=== PATIENT | male | born 1940 | race Caucasian/White ===

== ENCOUNTER 2017-03-19 19:33 | Emergency (ER) | payer OTHER ==
[2017-03-19 19:41] VITALS: TEMP 97.6; BMI 34.4
--- NOTE | 2017-03-19 19:44 | PDOC ---
History of Present Illness - General History Source: Patient Exam Limitations: No Limitations - History of Present Illness Initial Comments: 03/19/17 20:10 The patient is a 76-year-old male accompanied by son, with a significant past medical history of HTN, hypercholesterolemia, prostate cancer, and double bypass (10 years ago; on Xarelto), who presents to the ED with a nosebleed that began at 4 PM today. Pt states that his nose was bleeding intermittently; beginning approximately every 15 minutes bleeding would begin again. Pt was packing his nose but son brought pt to the ED since he is on a blood thinner and he was concerned for blood loss. He denies any lightheadedness or vision changes. He denies having any other complaints. PAST MEDICAL HISTORY: HTN, hypercholesterolemia, prostate cancer, and double bypass (10 years ago; on Xarelto) PAST SURGICAL HISTORY: no significant history FAMILY HISTORY: no pertinent history SOCIAL HISTORY: Pt lives with family and is employed. MEDICATIONS: reviewed ALLERGIES: As per nursing notes General: No fevers or chills, no weakness, no weight loss HEENT: (+)Nosebleed. No change in vision. No sore throat,. No ear pain CardioVascular: No chest pain or shortness of breath Respiratory:No cough, or wheezing. Gastrointestinal: no nausea, vomiting, diarrhea or constipation, No rectal bleeding Genitourinary: No dysuria, hematuria, or frequency Musculoskeletal: No joint or muscle pain or swelling Neurologic: No headache, vertigo, dizziness or loss of consciousness Psychiatric: nor depression Skin: No rashes or easy bruising Endocrine: no increased thirst or abnormal weight change Allergic: no skin or latex allergy All other systems reviewed and normal GENERAL: The patient is awake, alert, and fully oriented, in no acute distress. HEAD: Normal with no signs of trauma. NOSE: (+)Left septum: there are small areas of erythema that were the source of bleeding. Right nares is normal. There is no blood in posterior oropharynx. No active bleeding. EYES: Pupils equal, round and reactive to light, extraocular movements intact, sclera anicteric, conjunctiva clear. EXTREMITIES: Normal range of motion, no edema. NEUROLOGICAL: Normal speech, normal gait. PSYCH: Normal mood, normal affect. SKIN: Warm, Dry, normal turgor. <Katy Churchill - Last Filed: 03/19/17 20:10> - General History Source: Patient Exam Limitations: No Limitations - History of Present Illness Initial Comments: A portion of this note was documented by scribe services under my direction. I have reviewed the details of the note, within reason, and agree with the documentation. The case summary and management plan written by me. Procedure note epistaxis treatment No active bleeding at time of my evaluations however was able to identify multiple punctate areas of probable bleeding. Those areas were cauterized using silver nitrate. Patient tolerated well. Patient observed emergency room for approximately 20 minutes after procedure and no further bleeding. Patient discharged home. <Kenyon Stone I - Last Filed: 03/19/17 20:23> - General Chief Complaint: Nasal Bleeding Stated Complaint: NOSE BLEED ON XERALTA, STOPPED ON ARRIVAL Time Seen by Provider: 03/19/17 19:35 Past History <Katy Churchill - Last Filed: 03/19/17 20:10> - Past Medical History Anemia: No Asthma: No Cancer: Yes (PROSTATE CANCER SEED IMPLANT) Cardiac Disorders: Yes CVA: No COPD: No CHF: No Dementia: No Diabetes: No GI Disorders: No Disorders: Yes (H/O PROSTATE CANCER) HTN: Yes Hypercholesterolemia: Yes Liver Disease: No Seizures: No Thyroid Disease: No - Surgical History Abdominal Surgery: Yes (APPENDECTOMY) Appendectomy: Yes Cardiac Surgery: Yes (CABG 2007) Cholecystectomy: No Lung Surgery: No Neurologic Surgery: No Orthopedic Surgery: Yes (RIGHT FOOT SPUR REMOVED) - Suicide/Smoking/Psychosocial Hx Smoking History: Former smoker Have you smoked in the past 12 months: No Information on smoking cessation initiated: No Hx Alcohol Use: Yes Drug/Substance Use Hx: No Substance Use Type: Alcohol Hx Substance Use Treatment: No <Kenyon Stone I - Last Filed: 03/19/17 20:23> - Past Medical History Allergies/Adverse Reactions: Allergies Allergy/AdvReac Type Severity Reaction Status Date / Time No Known Allergies Allergy Verified 03/19/17 19:35 Home Medications: Ambulatory Orders ASA 81 mg PO DAILY 08/09/11 Allopurinol 300 mg PO DAILY 08/09/11 Simvastatin 40 mg PO HS 08/09/11 Tenoretic (Nf) 50 mg PO DAILY 08/09/11 Review of Systems - Review of Systems Able to Perform ROS?: Yes <Katy Churchill Last Filed: 03/19/17 20:10> *Physical Exam - Vital Signs Last Vital Signs Temp Pulse Resp BP Pulse Ox 97.6 F 88 18 146/92 97 03/19/17 19:36 03/19/17 19:36 03/19/17 19:36 03/19/17 19:36 03/19/17 19:36 <Katy Churchill - Last Filed: 03/19/17 20:10> - Vital Signs Last Vital Signs Temp Pulse Resp BP Pulse Ox 97.6 F 88 18 146/92 97 03/19/17 19:36 03/19/17 19:36 03/19/17 19:36 03/19/17 19:36 03/19/17 19:36 <Kenyon Stone I - Last Filed: 03/19/17 20:23> *DC/Admit/Observation/Transfer - Attestations Scribe Attestion: 03/19/17 20:14 Documentation prepared by Katy Churchill, acting as medical file clerk for Kenyon Stone MD. <ZhaoKaty - Last Filed: 03/19/17 20:10> - Discharge Dispostion Admit: Yes <Kenyon Stone I - Last Filed: 03/19/17 20:23> Diagnosis at time of Disposition: Anterior epistaxis - Discharge Dispostion Disposition: HOME Condition at time of disposition: Good - Patient Instructions Printed Discharge Instructions: DI for Nosebleed Additional Instructions: Get a humidifier and make sure you use it in your room at night. Starting tomorrow night you can also place a small amount of petroleum jelly in your nose bilateral to help keep the mucous membranes from drying out. Return to the emergency department immediately with ANY new, persistent or worsening symptoms. Continue any medications as previously prescribed by your physician. You should follow up with your primary doctor as soon as possible regarding today's emergency department visit. . Please make sure your doctor reviews the results of your emergency evaluation. Thank you for coming to the Emergency Department today for your care. It was a pleasure to see you today. Please note that your evaluation is INCOMPLETE until you follow-up with your doctor.
[2017-03-19 20:34] VITALS: BP 142/82; PULSE 80
== END 2017-03-19 20:34 | disposition home or self-care (01) ==
LOC: FER 19:33
DX: R04.0 Epistaxis (principal); I10 Essential (primary) hypertension; Z85.46 Personal history of malignant neoplasm of prostate; E78.00 Pure hypercholesterolemia, unspecified; Z87.891 Personal history of nicotine dependence; Z79.01 Long term (current) use of anticoagulants
CPT/HCPCS: 99281-25

== ENCOUNTER 2018-11-07 22:42 | Inpatient (IN) | payer OTHER ==
--- NOTE | 2018-11-07 23:41 | PDOC ---
History of Present Illness - General Chief Complaint: Injury Stated Complaint: FALL Time Seen by Provider: 11/07/18 23:40 - History of Present Illness Initial Comments: Mr. Stern is a 77M with PMH of a-fib, HTN, DM, gout, and prostate CA presenting s/p mechanical fall and weakness at around 9pm today. Patient history is limited 2/2 Alzheimer's disease, patient does not recall fall. Per family, he has had several minor falls over the past couple of months (falling onto his knees) but this is the first fall in which he hit his head. Denies LOC. Denies head pain. Past History - Past Medical History Allergies/Adverse Reactions: Allergies Allergy/AdvReac Type Severity Reaction Status Date / Time No Known Allergies Allergy Verified 11/07/18 22:58 Home Medications: Ambulatory Orders Allopurinol 300 mg PO DAILY 08/09/11 Simvastatin 40 mg PO HS 08/09/11 Amox-Tr/K Cl [Augmentin 875-125mg Tablet -] 1 tab PO BID@0800,1730 #13 tablet Atenolol [Tenormin -] 50 mg PO DAILY #30 tablet 03/21/17 Chlorthalidone [Hygroton -] 25 mg PO DAILY #30 tablet 03/21/17 Diphenhydramine HCl [Benadryl Capsule -] 25 mg PO HS PRN capsule 03/21/17 Metformin HCl [Glucophage] 1,000 mg PO BID #60 tablet 03/21/17 Anemia: No Asthma: No Cancer: Yes (PROSTATE CANCER SEED IMPLANT) Cardiac Disorders: Yes (AFIB) CVA: No COPD: No CHF: No Dementia: No Diabetes: No GI Disorders: No Disorders: Yes (H/O PROSTATE CANCER) HTN: Yes Hypercholesterolemia: Yes Liver Disease: No Seizures: No Thyroid Disease: No - Surgical History Abdominal Surgery: Yes (APPENDECTOMY) Appendectomy: Yes Cardiac Surgery: Yes (CABG 2007) Cholecystectomy: No Lung Surgery: No Neurologic Surgery: No Orthopedic Surgery: Yes (RIGHT FOOT SPUR REMOVED) - Suicide/Smoking/Psychosocial Hx Smoking History: Never smoked Have you smoked in the past 12 months: No Information on smoking cessation initiated: No Hx Alcohol Use: No Drug/Substance Use Hx: No Substance Use Type: Alcohol Hx Substance Use Treatment: No Review of Systems - Review of Systems Able to Perform ROS?: No (limited 2/2 Alzheimer's) Is the patient limited Mongolian proficient: No *Physical Exam - Vital Signs Last Vital Signs Temp Pulse Resp BP Pulse Ox 97.6 F 88 18 117/57 L 97 11/07/18 22:58 11/07/18 22:58 11/07/18 22:58 11/07/18 22:58 11/07/18 22:58 - Physical Exam General Appearance: Yes: Obese. No: Apparent Distress HEENT: positive: EOMI, VAMSHI, Normal Voice, Pharynx Normal, Hearing Grossly Normal. negative: Photophobia, Pharyngeal Erythema, Tonsillar Exudate, Tonsillar Erythema, Rhinorrhea, Sinus Tenderness, Orbits Neck: positive: Trachea midline, Supple. negative: Tender, Rigid, Decreased range of motion, Tender lateral, Tender midline Respiratory/Chest: positive: Lungs Clear, Normal Breath Sounds. negative: Chest Tender, Respiratory Distress, Accessory Muscle Use Cardiovascular: positive: Irregularly Irregular Vascular Pulses: Dorsalis-Pedis (R): 2+, Doralis-Pedis (L): 2+ Gastrointestinal/Abdominal: positive: Soft. negative: Tender, Guarding, Rebound Musculoskeletal: positive: Normal Inspection. negative: CVA Tenderness Extremity: positive: Normal Capillary Refill, Normal Inspection, Normal Range of Motion, Pelvis Stable. negative: Tender Integumentary: positive: Normal Color, Dry, Warm. negative: Cyanotic, Jaundice Neurologic: positive: stock repairer II-XII NML intact, Alert, Motor Strength 5/5. negative: Fully Oriented (oriented x1 to person ) ED Treatment Course - LABORATORY CBC & Chemistry Diagram: 11/08/18 00:49 11/08/18 00:49 Medical Decision Making - Medical Decision Making This is a 77M with PMH of Alzheimer's, a-fib (on eliquis), HTN, DM presenting s/ p fall and weakness. Family reports head trauma but no LOC. We will obtain CBC, CMP, and head CT w/o contrast to r/o intracranial bleed. 11/08/18 04:[address] negative shows no acute intracranial process. 11/08/18 0445 Lab results show elevated BUN and Cr, concern for NAWAF. We will admit this patient to the hospitalist service for further work up. Spoke to the hospitalist who agrees to accept this patient. *DC/Admit/Observation/Transfer Diagnosis at time of Disposition: Acute kidney injury - Discharge Dispostion Condition at time of disposition: Stable Decision to Admit order: Yes - Referrals Referrals: Pj Valdez MD [Primary Care Provider] - - Patient Instructions - Post Discharge Activity
[2018-11-08 00:59] LABS: BASO % 0.4 % (0-2.0); EOS % 1.3 % (0-4.5); HEMATOCRIT 35.4 % (35.4-49); HEMOGLOBIN 11.5 GM/dL (11.7-16.9); LYMPH % 20.8 % (8-40); MCH 31.4 pg (25.7-33.7); MCHC 32.6 g/dl (32.0-35.9); MEAN CELL VOLUME 96.3 fl (80-96); MEAN PLT VOLUME 8.7 fl (7.5-11.1); MONO % 6.7 % (3.8-10.2); NEUT % 70.8 % (42.8-82.8); PLATELET COUNT 189 K/MM3 (134-434); RBC 3.67 M/mm3 (4.00-5.60); WHITE BLOOD COUNT 10.5 K/mm3 (4.0-10.0)
[2018-11-08 01:17] LABS: INR 1.34 (0.83-1.09); PROTHROMBIN TIME (PATIENT) 15.8 SEC (9.7-13.0)
[2018-11-08 01:20] LABS: ACTIVATED PTT 27.7 SECONDS (25.2-36.5)
[2018-11-08 01:32] LABS: ALBUMIN 3.2 g/dl (3.4-5.0); BILIRUBIN,TOTAL 0.6 mg/dL (0.2-1); BLOOD UREA NITROGEN 36.7 mg/dL (7-18); CALCIUM 8.8 mg/dL (8.5-10.1); CREATININE 2.3 mg/dL (0.55-1.3); POTASSIUM 4.1 mmol/L (3.5-5.1); TOT PROT 6.4 g/dl (6.4-8.2)
--- NOTE | 2018-11-08 03:07 | PDOC ---
Attending Attestation - Resident Resident Name: LouisFreddy - ED Attending Attestation I have performed the following: I have examined & evaluated the patient, The case was reviewed & discussed with the resident, I agree w/resident's findings & plan, Exceptions are as noted - HPI HPI: 11/08/18 03:03 77-year-old male with history of afib on eliquis, BPH, hypertension, dementia presents with mechanical fall. This was witnessed by the patient's daughter-in- law. The patient was on the bathroom when he lost his footing and fell forward hit his head. No loss of consciousness. The patient is at baseline in regards to his dementia. No recent illnesses, fevers, chills, cough, vomiting, diarrhea. Patient's daughter is concerned about the patient as he is increasingly becoming more disheveled and not caring for himself. The patient lives with his was also other lead and is having difficulty caring for the patient. At this moment, there is no home health aide or visiting nursing services. The patient has had outpatient follow-up with a new neurologist. At this time, they have visiting nursing services arranged but the family is concerned as the patient lives only with the and the cannot always take care of the patient. There is no one watching the patient at all times. The patient is not caring her grooming himself. - Physicial Exam PE: 11/08/18 03:04 GENERAL: Awake, alert, and oriented x 2, in no acute distress HEAD: No signs of trauma EYES: PERRLA, EOMI, sclera anicteric, conjunctiva clear ENT: Auricles normal inspection, hearing grossly normal, nares patent, Moist mucosa NECK: Normal ROM, supple, LUNGS: Breath sounds equal, clear to auscultation bilaterally. No wheezes, and no crackles HEART: Irregularly irregular rate and rhythm, normal S1 and S2, no murmurs, rubs or gallops ABDOMEN: Soft, nontender,. No guarding, no rebound. No masses EXTREMITIES: Normal range of motion, no edema. No clubbing or cyanosis. No cords, erythema, or tenderness NEUROLOGICAL: Cranial nerves II through XII grossly intact. Normal speech SKIN: Warm, Dry, normal turgor, no rashes or lesions noted. - Medical Decision Making 11/08/18 03:06 Vital Signs Temp Pulse Resp BP Pulse Ox 97.6 F 88 18 117/57 L 97 11/07/18 22:58 11/07/18 22:58 11/07/18 22:58 11/07/18 22:58 11/07/18 22:58 The patient presents with mechanical fall and trauma to the head. The patient is currently on anticoagulants. Otherwise he appears nontoxic and alert. Patient we'll however need a head CT. Also notable, if the patient's social situation. The patient has become increasingly more difficult to care for at home and given that the patient his head and is on an anticoagulant and with no reliable observation at home during this time, we'll observe the patient in the hospital for potential repeat head CT in 24 hours and neurological checks. Blood work was examined and patient was noted to be in acute kidney injury. We' ll also need urinalysis to rule out urine tract infection. The patient should be admitted for further management and social work consultation. 11/08/18 04:24 CBC, BMP 11/08/18 00:49 11/08/18 00:49 CMP Sodium 140 mmol/L (136-145) 11/08/18 00:49 Potassium 4.1 mmol/L (3.5-5.1) 11/08/18 00:49 Chloride 102 mmol/L (98-107) 11/08/18 00:49 Carbon Dioxide 31 mmol/L (21-32) 11/08/18 00:49 Anion Gap 7 MMOL/L (8-16) L 11/08/18 00:49 BUN 36.7 mg/dL (7-18) H 11/08/18 00:49 Creatinine 2.3 mg/dL (0.55-1.3) H 11/08/18 00:49 Est GFR (CKD-EPI)AfAm 30.17 11/08/18 00:49 Est GFR (CKD-EPI)NonAf 26.04 11/08/18 00:49 Random Glucose 154 mg/dL (74-106) H 11/08/18 00:49 Calcium 8.8 mg/dL (8.5-10.1) 11/08/18 00:49 Total Bilirubin 0.6 mg/dL (0.2-1) 11/08/18 00:49 AST 17 U/L (15-37) 11/08/18 00:49 ALT 16 U/L (13-61) 11/08/18 00:49 Alkaline Phosphatase 35 U/L (45-117) L 11/08/18 00:49 Creatine Kinase 40 U/L (26-308) 11/08/18 00:49 Troponin I 0.02 ng/ml (0.00-0.05) 11/08/18 00:49 Total Protein 6.4 g/dl (6.4-8.2) 11/08/18 00:49 Albumin 3.2 g/dl (3.4-5.0) L 11/08/18 00:49 CT head reviewed. No acute findings. Admit. Heart Score/ECG Review #1 ECG reviewed & interpreted by me at: 01:00 11/08/18 03:05 afib 87 with occasional PVCs, no std/joseph, T wave flat III, avF, V1-V2, QTC 493 msec
[2018-11-08] MEDS ORDERED: HALOPERIDOL LACTATE 5 MG/ML IM ONE (05:07)
[2018-11-08] MEDS ORDERED: HALOPERIDOL LACTATE 5 MG/ML ONE (05:40)
[2018-11-08] MEDS ORDERED: ACETAMINOPHEN 325 MG TABLET (FP) PO PRN (09:43)
[2018-11-08] MEDS ORDERED: SODIUM CHLORIDE 1,000 ML IV SCH (09:45)
--- NOTE | 2018-11-08 11:23 | HP ---
CHIEF COMPLAINT: Fall PCP: Dr. Valdez HISTORY OF PRESENT ILLNESS: 77 y/o M with PMHx AFib (on Eliquis), HTN, BPH, DM, Gout, Alzhemiers dementia, Prostate Ca presents after mechanical fall. Patient is alert and oriented however he is confused (Says he was brought to the hospital by accident), I have placed a phone call and left a voicemail to the patients brother in law ); Thus the hx was provided by chart review. Patient lost his footing while in the restroom and hit his head. Denies LOC. Family has concerns that patient lives at home with his but is unable to care for himself becoming more disheveled. ER course was notable for: (1) (2) (3) Recent Travel: Denies PAST MEDICAL HISTORY: As above PAST SURGICAL HISTORY: Unknown; Will discuss with family when they arrive Social History: Unknown; Will discuss with family when they arrive Family History: Unknown; Will discuss with family when they arrive Allergies No Known Allergies Allergy (Verified 11/07/18 22:58) HOME MEDICATIONS: Home Medications Medication Instructions Recorded Unobtainable 11/08/18 REVIEW OF SYSTEMS CONSTITUTIONAL: Absent: fever, chills, diaphoresis, generalized weakness, malaise, loss of appetite, weight change HEENT: Absent: rhinorrhea, nasal congestion, throat pain, throat swelling, difficulty swallowing, mouth swelling, ear pain, eye pain, visual changes CARDIOVASCULAR: Absent: chest pain, syncope, palpitations, irregular heart rate, lightheadedness , peripheral edema RESPIRATORY: Absent: cough, shortness of breath, dyspnea with exertion, orthopnea, wheezing, stridor, hemoptysis GASTROINTESTINAL: Absent: abdominal pain, abdominal distension, nausea, vomiting, diarrhea, constipation, melena, hematochezia GENITOURINARY: Absent: dysuria, frequency, urgency, hesitancy, hematuria, flank pain, genital pain SKIN: Absent: rash, itching, pallor HEMATOLOGIC/IMMUNOLOGIC: Absent: easy bleeding, easy bruising, lymphadenopathy, frequent infections ENDOCRINE: Absent: unexplained weight gain, unexplained weight loss, heat intolerance, cold intolerance NEUROLOGIC: Absent: headache, focal weakness or paresthesias, dizziness, unsteady gait, seizure, mental status changes, bladder or bowel incontinence PSYCHIATRIC: Absent: anxiety, depression, suicidal or homicidal ideation, hallucinations. PHYSICAL EXAMINATION Vital Signs - 24 hr 11/07/18 11/08/18 11/08/18 22:58 04:38 09:22 Temperature 97.6 F 97.6 F 97.7 F Pulse Rate 88 Pulse Rate [ 81 81 Right] Respiratory 18 20 20 Rate Blood Pressure 117/57 L Blood Pressure 97/71 122/79 [Left] O2 Sat by Pulse 97 96 98 Oximetry (%) GENERAL: A&Ox2 (To person and place only), NAD HEAD: NCAT EYES: PERRL, EOMI EARS, NOSE, THROAT: Moist mucous membranes. NECK: Supple LUNGS: Diminished breath sounds at the bases, No wheezes, no crackles. HEART: Regular rate and rhythm, normal S1 and S2 without murmur ABDOMEN: Soft, nontender, not distended, + bowel sounds, no guarding MUSCULOSKELETAL: No CVA tenderness. No Joint tenderness throughout. FROM however complains of pain with Left knee flexion EXTREMITIES: No peripheral edema. NEUROLOGICAL: Cranial nerves II-XII intact. SKIN: Warm, dry, Multiple lichen planus lesions over back Laboratory Results - last 24 hr 11/08/18 11/08/18 11/08/18 00:49 00:49 00:49 WBC 10.5 H RBC 3.67 L Hgb 11.5 L Hct 35.4 D MCV 96.3 H MCH 31.4 MCHC 32.6 RDW 16.0 H Plt Count 189 MPV 8.7 Absolute Neuts (auto) 7.4 Neutrophils % 70.8 D Lymphocytes % 20.8 D Monocytes % 6.7 Eosinophils % 1.3 Basophils % 0.4 Nucleated RBC % 0 PT with INR 15.80 H INR 1.34 H PTT (Actin FS) 27.7 Sodium 140 Potassium 4.1 Chloride 102 Carbon Dioxide 31 Anion Gap 7 L BUN 36.7 H Creatinine 2.3 H Est GFR (CKD-EPI)AfAm 30.17 Est GFR (CKD-EPI)NonAf 26.04 Random Glucose 154 H Calcium 8.8 Total Bilirubin 0.6 AST 17 ALT 16 Alkaline Phosphatase 35 L Creatine Kinase 40 Troponin I 0.02 Total Protein 6.4 Albumin 3.2 L Active Medications Acetaminophen (Tylenol -) 650 mg PO Q4H PRN PRN Reason: PAIN OR FEVER Apixaban (Eliquis -) 2.5 mg PO BID DEANDRA Escitalopram Oxalate (Lexapro -) 10 mg PO DAILY DEANDRA Sodium Chloride (Normal Saline -) 1,000 mls @ 100 mls/hr IV ASDIR DEANDRA Stop: 11/08/18 19:44 Sodium Chloride (Normal Saline -) 1,000 mls @ 75 mls/hr IV ASDIR DEANDRA Insulin Aspart (Novolog Vial Sliding Scale -) 1 vial SQ ACHS DEANDRA; Protocol Levothyroxine Sodium (Synthroid -) 25 mcg PO DAILY DEANDRA Non-Formulary Medication (Atenolol/Chlorthalidone [Atenolol-Chlorthalidone 100- 25]) 1 tab PO DAILY DEANDRA Non-Formulary Medication (Memantine Hcl [Memantine Hcl Er]) 21 mg PO DAILY DEANDRA Non-Formulary Medication (Mirabegron [Myrbetriq]) 25 mg PO DAILY DEANDRA Non-Formulary Medication (Simvastatin) 40 mg PO HS DEANDRA Tamsulosin HCl (Flomax -) 0.4 mg PO HS DEANDRA IMAGING: -CT C-Spine without contrast: The alignment is satisfactory. No gross fracture or subluxation is seen. 2 level degenerative disc disease, as described above. -CT Head without contrast: Moderate atrophy. Right periventricular chronic lacunar infarct. Otherwise, no gross evidence of a focal intracranial lesion or hemorrhage is seen. ASSESSMENT/PLAN: 77 y/o M with PMHx AFib (on Eliquis), HTN, BPH, DM, Gout, Alzhemiers dementia, Prostate Ca presents after mechanical fall. #Left knee pain S/P Mechanical Fall -Without signs of trauma on physical exam -Imaging noted above does not reveal fracture or hemorrhage -Left knee XRay 3 view pending -Acetaminophen for pain control -Physical therapy consult -Social work consult for possible placement -Fall precautions #NAWAF -Likely due to dehydration; Still consider UTI given foul smelling urine -NS @ 75 mls/hr -Will Check UA, urine cx, Renal US -Monitor Cr #AFib, Controlled -Continue home dose BB and NOAC #DM -ISS BGMs ACHS #FEN -NS @ 100 for now; Switch to 75 this evening -Lytes WNL -Diabetic Diet #PPx -DVT: NOAC Dispo: Admit to Med-Surg Visit type - Emergency Visit Emergency Visit: Yes ED Registration Date: 11/08/18 Care time: The patient presented to the Emergency Department on the above date and was hospitalized for further evaluation of their emergent condition. - New Patient This patient is new to me today: Yes Date on this admission: 11/08/18 - Critical Care Critical Care patient: No
[2018-11-08] MEDS ORDERED: PATIENT'S OWN MEDICATION (NON-FORMULARY) (Atenolol/Chlorthalidone [Atenolol-Chlorthalidone PO SCH (12:30)
[2018-11-08] MEDS: ESCITALOPRAM OXALATE 10 MG TABLET (FP) PO SCH (12:58)
[2018-11-08] MEDS: APIXABAN 2.5 MG TABLET PO SCH ×2 (12:58→22:41)
[2018-11-08] MEDS: INSULIN SLIDING SCALE (NOVOLOG) 1 VIAL SQ SCH ×3 (12:59→22:41)
--- NOTE | 2018-11-08 14:00 | PN ---
Teaching Attending Note Name of Resident: Yolanda Sky ATTENDING PHYSICIAN STATEMENT I saw and evaluated the patient. I reviewed the resident's note and discussed the case with the resident. I agree with the resident's findings and plan as documented. SUBJECTIVE: Not fully oriented. Denies most complaints. Only complains of L knee pain on flexion. Unable to provide history. OBJECTIVE: Afebrile, Hemodynamically Stable. AAO x 2. Last Vital Signs Temp Pulse Resp BP Pulse Ox 97.7 F 81 20 122/79 98 11/08/18 09:22 11/08/18 09:22 11/08/18 09:22 11/08/18 09:22 11/08/18 09:22 HEENT - Atraumatic, Normocephalic. Heart - S1, S2, RRR Lungs - clear to auscultation Abdomen - Soft, non-tender. Bowel Sounds normal. Extremities - some venous stasis skin changes. MS - Pain on L knee flexion. No joint pain/tenderness/swelling. Laboratory Results - last 24 hr 11/08/18 11/08/18 11/08/18 00:49 00:49 00:49 WBC 10.5 H RBC 3.67 L Hgb 11.5 L Hct 35.4 D MCV 96.3 H MCH 31.4 MCHC 32.6 RDW 16.0 H Plt Count 189 MPV 8.7 Absolute Neuts (auto) 7.4 Neutrophils % 70.8 D Lymphocytes % 20.8 D Monocytes % 6.7 Eosinophils % 1.3 Basophils % 0.4 Nucleated RBC % 0 PT with INR 15.80 H INR 1.34 H PTT (Actin FS) 27.7 Sodium 140 Potassium 4.1 Chloride 102 Carbon Dioxide 31 Anion Gap 7 L BUN 36.7 H Creatinine 2.3 H Est GFR (CKD-EPI)AfAm 30.17 Est GFR (CKD-EPI)NonAf 26.04 POC Glucometer Random Glucose 154 H Calcium 8.8 Total Bilirubin 0.6 AST 17 ALT 16 Alkaline Phosphatase 35 L Creatine Kinase 40 Troponin I 0.02 Total Protein 6.4 Albumin 3.2 L 11/08/18 12:14 WBC RBC Hgb Hct MCV MCH MCHC RDW Plt Count MPV Absolute Neuts (auto) Neutrophils % Lymphocytes % Monocytes % Eosinophils % Basophils % Nucleated RBC % PT with INR INR PTT (Actin FS) Sodium Potassium Chloride Carbon Dioxide Anion Gap BUN Creatinine Est GFR (CKD-EPI)AfAm Est GFR (CKD-EPI)NonAf POC Glucometer 232 Random Glucose Calcium Total Bilirubin AST ALT Alkaline Phosphatase Creatine Kinase Troponin I Total Protein Albumin Current Medications Generic Name Dose Route Start Last Admin Trade Name Freq PRN Reason Stop Dose Admin Acetaminophen 650 mg 11/08/18 09:43 Tylenol - PO Q4H PRN PAIN OR FEVER Apixaban 2.5 mg 11/08/18 12:30 11/08/18 12:58 Eliquis - PO 2.5 mg BID DEANDRA Administration Atenolol 100 mg 11/09/18 10:00 Tenormin - PO DAILY DEANDRA Atorvastatin Calcium 20 mg 11/08/18 22:00 Lipitor - PO HS [facility] Escitalopram Oxalate 10 mg 11/08/18 12:30 11/08/18 12:58 Lexapro - PO 10 mg DAILY DEANDRA Administration Sodium Chloride 1,000 mls @ 100 mls/hr 11/08/18 09:45 11/08/18 13:00 Normal Saline - IV 11/08/18 19:44 100 mls/hr ASDIR DEANDRA Administration Sodium Chloride 1,000 mls @ 75 mls/hr 11/08/18 20:00 Normal Saline - IV ASDIR DEANDRA Insulin Aspart 1 vial 11/08/18 11:00 11/08/18 12:59 Novolog Vial Sliding Scale - SQ 4 units ACHS DEANDRA Administration Protocol Levothyroxine Sodium 25 mcg 11/09/18 10:00 Synthroid - PO DAILY DEANDRA Non-Formulary Medication 21 mg 11/09/18 10:00 Memantine Hcl [Memantine Hcl Er] PO DAILY [facility] Non-Formulary Medication 25 mg 11/09/18 10:00 Mirabegron [Myrbetriq] PO DAILY DEANDRA Tamsulosin HCl 0.4 mg 11/08/18 22:00 Flomax - PO HS [facility] Home Medications Medication Instructions Recorded Allopurinol [Zyloprim -] 300 mg PO DAILY 11/08/18 Apixaban [Eliquis] 2.5 mg PO BID 11/08/18 Atenolol/Chlorthalidone 1 tab PO DAILY 11/08/18 [Atenolol-Chlorthalidone 100-25] Escitalopram Oxalate [Lexapro -] 10 mg PO DAILY 11/08/18 Levothyroxine [Synthroid -] 25 mcg PO DAILY 11/08/18 Memantine HCl [Memantine HCl ER] 21 mg PO DAILY 11/08/18 Metformin HCl [Glucophage] 1,000 mg PO BID 11/08/18 Mirabegron [Myrbetriq] 25 mg PO DAILY 11/08/18 Simvastatin [Zocor -] 40 mg PO HS 11/08/18 Sitagliptin Phosphate [Januvia] 50 mg PO DAILY 11/08/18 Tamsulosin HCl 0.4 mg PO HS 11/08/18 ASSESSMENT/PLAN: 77 year old male with history of Alzheimer's Dementia, Atrial Fibrillation (on Eliquis), HTN, BPH, DM 2, Gout, Prostate Ca brought to the ED after fall. Family reports frequent falls recently. 1. NAWAF ?sec to UTI versus dehydration due to poor oral intake versus obstruction Foul smelling Urine - UA/Urine Cx requested. Afebrile, Hemodynamically Stable. Will hold Abx pending UA/Urine Cx Renal/Bladder US requested to exclude obstruction. Urine Na and Creat requested. IV hydration and renal function monitoring. If any deterioration in renal function, will consult Nephrology. 2. Left Knee pain on ROM s/p fall Knee Xray - pending PT eval. 3. Atrial Fibrillation - continue Atenolol and Eliquis. Given frequent falls, Cardio to re-eval safety of NOAC after PT eval for ambulatory safety. 4. DM 2 - Maintain on Insulin Sliding Scale. Oral anti-hyperglycemic meds held. 5. HLD - Continue Lipitor 6. BPH, Prostate Ca, and Overactive Bladder - Continue Tamsulosin and Myrbetriq. 7. Hypothyroidism - Continue Levothyroxine. 8. Alzheimer's Dementia - Continue Memantine, Lexapro. Received Haldol in ED for Agitation. 9. Gout - on Allopurinol. DVT Px - on Eliquis
[2018-11-08 20:05] LABS: EPI CELLS 0.2 /HPF (0-5/HPF); HYALINE CASTS 3 /lpf (0-8); PH,URINE 6.5 (5.0-8.0); URINE APPEARANCE CLOUDY; URINE BACTERIA 36.1 /hpf (NEGATIVE); URINE BILIRUBIN NEGATIVE (NEGATIVE); URINE COLOR YELLOW; URINE GLUCOSE (UA) NEGATIVE (NEGATIVE); URINE KETONE NEGATIVE (NEGATIVE); URINE LEUK ESTERASE 3+ (NEGATIVE); URINE NITRITE NEGATIVE (NEGATIVE); URINE PROTEIN NEGATIVE (NEGATIVE); URINE RBC 3 /hpf (0-4); URINE UROBILINOGEN 0.2 mg/dL (0.2-1.0); URINE WBC 169 /hpf (0-5)
[2018-11-08] MEDS ORDERED: cefTRIAXone SODIUM 1 GM VIAL ONE (20:45)
[2018-11-08] MEDS ORDERED: DEXTROSE 5%-WATER - 50 ML IVPB ONE (20:45)
[2018-11-08] MEDS: CEFTRIAXONE 1 GM in DEXTROSE 5%-WATER - 50 ML IVPB SCH (20:51)
[2018-11-08] MEDS: SODIUM CHLORIDE 1,000 ML IV SCH (20:54)
[2018-11-08] MEDS ORDERED: PATIENT'S OWN MEDICATION (NON-FORMULARY) (Simvastatin 40 MG) PO SCH (22:00)
[2018-11-08] MEDS: ATORVASTATIN CA 20 MG TABLET (FP) PO SCH (22:41)
[2018-11-08] MEDS: TAMSULOSIN HCL 0.4 MG CAP PO SCH (22:41)
[2018-11-09] MEDS: SODIUM CHLORIDE 1,000 ML IV SCH (01:05)
[2018-11-09] MEDS: INSULIN SLIDING SCALE (NOVOLOG) 1 VIAL SQ SCH ×4 (06:10→21:06)
[2018-11-09] MEDS ORDERED: INSULIN (NOVOLOG) ASPART 100 UNITS/ML 10ML VIAL ONE (07:20)
[2018-11-09] MEDS ORDERED: PT OWN MED DRAWER 7, Y5N ONE ×2 (07:23→18:07)
[2018-11-09 07:59] LABS: BASO % 0.5 % (0-2.0); EOS % 2.1 % (0-4.5); HEMATOCRIT 33.6 % (35.4-49); HEMOGLOBIN 11.1 GM/dL (11.7-16.9); LYMPH % 25.7 % (8-40); MCH 31.5 pg (25.7-33.7); MCHC 32.9 g/dl (32.0-35.9); MEAN CELL VOLUME 95.7 fl (80-96); MEAN PLT VOLUME 9.2 fl (7.5-11.1); MONO % 8.6 % (3.8-10.2); NEUT % 63.1 % (42.8-82.8); PLATELET COUNT 173 K/MM3 (134-434); RBC 3.51 M/mm3 (4.00-5.60); RDW 15.9 % (11.9-15.9); WHITE BLOOD COUNT 8.5 K/mm3 (4.0-10.0)
[2018-11-09 08:03] LABS: ALBUMIN 2.9 g/dl (3.4-5.0); BILIRUBIN,TOTAL 0.5 mg/dL (0.2-1); CALCIUM 8.4 mg/dL (8.5-10.1); CREATININE 2.2 mg/dL (0.55-1.3); MAGNESIUM 2.1 mg/dL (1.8-2.4); PHOSPHOROUS 4.2 mg/dL (2.5-4.9); POTASSIUM 3.7 mmol/L (3.5-5.1); TOT PROT 5.8 g/dl (6.4-8.2)
[2018-11-09] MEDS ORDERED: cefTRIAXone SODIUM 1 GM VIAL ONE (08:54)
[2018-11-09] MEDS ORDERED: DEXTROSE 5%-WATER - 50 ML IVPB ONE (08:54)
[2018-11-09] MEDS ORDERED: CHLORTHALIDONE 25 MG TABLET PO SCH (10:00)
--- NOTE | 2018-11-09 10:25 | CON.NEP ---
Consult Consult Specialty:: nephrology Reason for Consultation:: renal insufficiency - History of Present Illness Chief Complaint: none History of Present Illness: 77 y/o M with PMHx AFib (on Eliquis), HTN, BPH, DM, Gout, Alzhemiers dementia, Prostate Ca presents after mechanical fall. He says he was a little dizzy. Doesnt give much history. Says he feels well overall. He does have a median sternotomy scar and says he had surgery "some time ago" - History Source History Provided By: Medical Record Limitations to Obtaining History: Dementia - Past Medical History [employer]OR [employer]IOR[employer] HE[employer]: Yes: Alzheimer's Cardio/Vascular: Yes: AFIB, HTN, Hyperlipdemia Renal/: Yes: Other (prostate ca) Endocrine: Yes: Diabetes Mellitus - Alcohol/Substance Use Hx Alcohol Use: No - Smoking History Smoking history: Never smoked Have you smoked in the past 12 months: No Home Medications - Allergies Allergies/Adverse Reactions: Allergies Allergy/AdvReac Type Severity Reaction Status Date / Time No Known Allergies Allergy Verified 11/07/18 22:58 - Home Medications Home Medications: Ambulatory Orders Allopurinol [Zyloprim -] 300 mg PO DAILY 11/08/18 Apixaban [Eliquis] 2.5 mg PO BID 11/08/18 Atenolol/Chlorthalidone [Atenolol-Chlorthalidone 100-25] 1 tab PO DAILY Escitalopram Oxalate [Lexapro -] 10 mg PO DAILY 11/08/18 Levothyroxine [Synthroid -] 25 mcg PO DAILY 11/08/18 Memantine HCl [Memantine HCl ER] 21 mg PO DAILY 11/08/18 Metformin HCl [Glucophage] 1,000 mg PO BID 11/08/18 Mirabegron [Myrbetriq] 25 mg PO DAILY 11/08/18 Simvastatin [Zocor -] 40 mg PO HS 11/08/18 Sitagliptin Phosphate [Januvia] 50 mg PO DAILY 11/08/18 Tamsulosin HCl 0.4 mg PO HS 11/08/18 Nephrology Consult - Height Height: 6 ft 2 in - Weight Weight: 29 lb - BMI Body Mass Index (BMI): 3.7 - Lab Results CBC,BMP: CBC, BMP 11/09/18 06:30 11/09/18 06:30 Anion Gap: Anion Gap Anion Gap 7 MMOL/L (8-16) L 11/09/18 06:30 - Imaging Ultrasound: Report Reviewed - Physical Examination Vital Signs: Vital Signs Temperature 97.6 F 11/09/18 06:00 Pulse Rate 94 H 11/09/18 06:00 Respiratory Rate 18 11/09/18 06:00 Blood Pressure 116/87 11/09/18 06:00 O2 Sat by Pulse Oximetry (%) 97 11/08/18 21:00 Constitutional: Yes: No Distress Eyes: Yes: Conjunctiva Clear, EOM Intact HENT: Yes: Atraumatic, Normocephalic Neck: Yes: Supple, Trachea Midline Cardiovascular: Yes: Regular Rate and Rhythm Respiratory: Yes: Regular, CTA Bilaterally Gastrointestinal: Yes: Normal Bowel Sounds Renal/: No: Bladder Distention Edema: No Peripheral Pulses WNL: No Neurological: Yes: Alert, Oriented Psychiatric: Yes: Alert, Oriented Assessment/Plan IMPRESSION 78 year old man who comes in s/p fall and has alzheimers dementia non proteinuric ckd- fena is 1.25. possible element of mamadou UTI htn dementia h/o prostate ca normocytic anemia PLAN agree with hydration sonogram reviewed avoid hypotension and nephrotoxins ceftriaxone for uti f/u urine cultures neuro eval monitor renal function urine protein and creat
[2018-11-09] MEDS: ATENOLOL 50 MG TABLET (FP) PO SCH (10:33)
[2018-11-09] MEDS: CEFTRIAXONE 1 GM in DEXTROSE 5%-WATER - 50 ML IVPB SCH (10:33)
[2018-11-09] MEDS: APIXABAN 2.5 MG TABLET PO SCH ×2 (10:33→21:05)
[2018-11-09] MEDS: LEVOTHYROXINE NA 25 MCG TABLET (FP) PO SCH (10:34)
[2018-11-09] MEDS: ESCITALOPRAM OXALATE 10 MG TABLET (FP) PO SCH (10:34)
[2018-11-09] MEDS: PATIENT'S OWN MEDICATION (NON-FORMULARY) (Mirabegron [Myrbetriq] 25 MG) PO SCH (11:49)
[2018-11-09] MEDS: MEMANTINE HCL 21 MG PO SCH (11:50)
--- NOTE | 2018-11-09 13:18 | EKG ---
Test Reason : Blood Pressure : / mmHG Vent. Rate : 087 BPM Atrial Rate : 340 BPM P-R Int : 000 ms QRS Dur : 090 ms QT Int : 410 ms P-R-T Axes : 000 004 063 degrees QTc Int : 493 ms POOR DATA QUALITY, INTERPRETATION MAY BE ADVERSELY AFFECTED ATRIAL FIBRILLATION WITH PREMATURE VENTRICULAR OR ABERRANTLY CONDUCTED COMPLEXES CANNOT RULE OUT INFERIOR INFARCT (CITED ON OR BEFORE 08-NOV-2018) ABNORMAL ECG WHEN COMPARED WITH ECG OF 20-MAR-2017 10:42, NONSPECIFIC T WAVE ABNORMALITY, WORSE IN ANTEROLATERAL LEADS Confirmed by MD VALERIA, MARCO ANTONIO ([id number]) on 11/09/2018 1:17:35 PM Referred By: Confirmed By:MARCO ANTONIO SHAW MD
--- NOTE | 2018-11-09 14:47 | PN ---
Progress Note (short form) - Note Progress Note: SUBJECTIVE: Still not oriented to time. Denies most complaints. Only complains of L knee pain on flexion. Unable to provide history. OBJECTIVE: Afebrile, Hemodynamically Stable. AAO x 2. Last Vital Signs Temp Pulse Resp BP Pulse Ox 97.6 F 94 H 18 116/87 97 11/09/18 06:00 11/09/18 06:00 11/09/18 06:00 11/09/18 06:00 11/08/18 21:00 Heart - S1, S2, RRR Lungs - clear to auscultation Abdomen - Soft, non-tender. Bowel Sounds normal. Extremities - some venous stasis skin changes. MS - Pain on L knee flexion. No joint pain/tenderness/swelling. Neuro - AAO x 2. Tone/Power normal all 4 extremities. Laboratory Results - last 24 hr 11/08/18 11/08/18 11/08/18 17:32 19:00 20:26 WBC RBC Hgb Hct MCV MCH MCHC RDW Plt Count MPV Absolute Neuts (auto) Neutrophils % Lymphocytes % Monocytes % Eosinophils % Basophils % Nucleated RBC % Sodium Potassium Chloride Carbon Dioxide Anion Gap BUN Creatinine Est GFR (CKD-EPI)AfAm Est GFR (CKD-EPI)NonAf POC Glucometer 125 Random Glucose Calcium Phosphorus Magnesium Total Bilirubin AST ALT Alkaline Phosphatase Total Protein Albumin Urine Color Yellow Urine Appearance Cloudy Urine pH 6.5 Ur Specific Walton 1.014 Urine Protein Negative Urine Glucose (UA) Negative Urine Ketones Negative Urine Blood Negative Urine Nitrite Negative Urine Bilirubin Negative Urine Urobilinogen 0.2 Ur Leukocyte Esterase 3+ H Urine WBC (Auto) 169 Urine RBC (Auto) 3 Urine Casts (Auto) 3 U Epithel Cells (Auto) 0.2 Urine Bacteria (Auto) 36.1 Ur Random Creatinine 94.0 U Random Total Protein Ur Random Sodium Urine Creatinine 11/08/18 11/08/18 11/09/18 20:26 21:49 05:39 WBC RBC Hgb Hct MCV MCH MCHC RDW Plt Count MPV Absolute Neuts (auto) Neutrophils % Lymphocytes % Monocytes % Eosinophils % Basophils % Nucleated RBC % Sodium Potassium Chloride Carbon Dioxide Anion Gap BUN Creatinine Est GFR (CKD-EPI)AfAm Est GFR (CKD-EPI)NonAf POC Glucometer 143 139 Random Glucose Calcium Phosphorus Magnesium Total Bilirubin AST ALT Alkaline Phosphatase Total Protein Albumin Urine Color Urine Appearance Urine pH Ur Specific Walton Urine Protein Urine Glucose (UA) Urine Ketones Urine Blood Urine Nitrite Urine Bilirubin Urine Urobilinogen Ur Leukocyte Esterase Urine WBC (Auto) Urine RBC (Auto) Urine Casts (Auto) U Epithel Cells (Auto) Urine Bacteria (Auto) Ur Random Creatinine U Random Total Protein Ur Random Sodium 75 Urine Creatinine 11/09/18 11/09/18 11/09/18 06:30 06:30 12:15 WBC 8.5 RBC 3.51 L Hgb 11.1 L Hct 33.6 L MCV 95.7 MCH 31.5 MCHC 32.9 RDW 15.9 Plt Count 173 MPV 9.2 Absolute Neuts (auto) 5.4 Neutrophils % 63.1 Lymphocytes % 25.7 D Monocytes % 8.6 Eosinophils % 2.1 Basophils % 0.5 Nucleated RBC % 0 Sodium 139 Potassium 3.7 Chloride 104 Carbon Dioxide 28 Anion Gap 7 L BUN 37.0 H Creatinine 2.2 H Est GFR (CKD-EPI)AfAm 31.62 Est GFR (CKD-EPI)NonAf 27.28 POC Glucometer 152 Random Glucose 150 H Calcium 8.4 L Phosphorus 4.2 Magnesium 2.1 Total Bilirubin 0.5 AST 12 L ALT 14 Alkaline Phosphatase 32 L Total Protein 5.8 L Albumin 2.9 L Urine Color Urine Appearance Urine pH Ur Specific [place] Urine Protein Urine Glucose (UA) Urine Ketones Urine Blood Urine Nitrite Urine Bilirubin Urine Urobilinogen Ur Leukocyte Esterase Urine WBC (Auto) Urine RBC (Auto) Urine Casts (Auto) U Epithel Cells (Auto) Urine Bacteria (Auto) Ur Random Creatinine U Random Total Protein Ur Random Sodium Urine Creatinine 11/09/18 13:30 WBC RBC Hgb Hct MCV MCH MCHC RDW Plt Count MPV Absolute Neuts (auto) Neutrophils % Lymphocytes % Monocytes % Eosinophils % Basophils % Nucleated RBC % Sodium Potassium Chloride Carbon Dioxide Anion Gap BUN Creatinine Est GFR (CKD-EPI)AfAm Est GFR (CKD-EPI)NonAf POC Glucometer Random Glucose Calcium Phosphorus Magnesium Total Bilirubin AST ALT Alkaline Phosphatase Total Protein Albumin Urine Color Urine Appearance Urine pH Ur Specific [place] Urine Protein Urine Glucose (UA) Urine Ketones Urine Blood Urine Nitrite Urine Bilirubin Urine Urobilinogen Ur Leukocyte Esterase Urine WBC (Auto) Urine RBC (Auto) Urine Casts (Auto) U Epithel Cells (Auto) Urine Bacteria (Auto) Ur Random Creatinine U Random Total Protein 18.1 H Ur Random Sodium Urine Creatinine 72.0 Current Medications Generic Name Dose Route Start Last Admin Trade Name Freq PRN Reason Stop Dose Admin Acetaminophen 650 mg 11/08/18 09:43 Tylenol - PO Q4H PRN PAIN OR FEVER Apixaban 2.5 mg 11/08/18 12:30 11/09/18 10:33 Eliquis - PO 2.5 mg BID DEANDRA Administration Atenolol 100 mg 11/09/18 10:00 11/09/18 10:33 Tenormin - PO 100 mg DAILY DEANDRA Administration Atorvastatin Calcium 20 mg 11/08/18 22:00 11/08/18 22:41 Lipitor - PO 20 mg HS DEANDRA Administration Escitalopram Oxalate 10 mg 11/08/18 12:30 11/09/18 10:34 Lexapro - PO 10 mg DAILY DEANDRA Administration Sodium Chloride 1,000 mls @ 75 mls/hr 11/08/18 20:00 11/09/18 01:05 Normal Saline - IV 75 mls/hr ASDIR DEANRDA Administration Ceftriaxone Sodium 1 gm/ 50 mls @ 200 mls/hr 11/08/18 20:30 11/09/18 10:33 Dextrose IVPB 200 mls/hr DAILY DEANDRA Administration Protocol Insulin Aspart 1 vial 11/08/18 11:00 11/09/18 12:29 Novolog Vial Sliding Scale - SQ Not Given ACHS [facility] Protocol Levothyroxine Sodium 25 mcg 11/09/18 10:00 11/09/18 10:34 Synthroid - PO 25 mcg DAILY DEANDRA Administration Non-Formulary Medication 21 mg 11/09/18 10:00 11/09/18 11:50 Memantine Hcl [Memantine Hcl Er] PO 21 mg DAILY DEANDRA Administration Non-Formulary Medication 25 mg 11/09/18 10:00 11/09/18 11:49 Mirabegron [Myrbetriq] PO 25 mg DAILY DEANDRA Administration Tamsulosin HCl 0.4 mg 11/08/18 22:00 11/08/18 22:41 Flomax - PO 0.4 mg HS DEANDRA Administration ASSESSMENT/PLAN: 77 year old male with history of Alzheimer's Dementia, Atrial Fibrillation (on Eliquis), HTN, BPH, DM 2, Gout, Prostate Ca brought to the ED after fall. Family reports frequent falls recently. 1. NAWAF ?sec to UTI + dehydration due to poor oral intake Foul smelling Urine - Urine Cx pending. Afebrile, Hemodynamically Stable. Will hold Abx pending Urine Cx result. Renal/Bladder US - Bilateral renal lipomatosis, L Cyst 3.6cm Continue IV hydration and renal function monitoring. Nephrology consulted as Creatinine has not decreased significantly. 2. Left Knee pain on ROM s/p fall Knee Xray - pending PT eval. 3. Atrial Fibrillation - continue Atenolol and Eliquis. Given frequent falls, Cardio to re-evaluate safety of NOAC after PT eval for ambulatory safety. 4. DM 2 - Maintain on Insulin Sliding Scale. Oral anti-hyperglycemic meds held. 5. HLD - Continue Lipitor 6. BPH, Prostate Ca, and Overactive Bladder - Continue Tamsulosin and Myrbetriq. 7. Hypothyroidism - Continue Levothyroxine. 8. Alzheimer's Dementia - Continue Memantine, Lexapro. Received Haldol in ED for Agitation. 9. Gout - on Allopurinol. 10 Cerebrovascular Disease - Chronic R periventricular Chronic lacunar infarct on CT Head - on Eliquis and Allopurinol. DVT Px - on Eliquis Visit type - Emergency Visit Emergency Visit: Yes ED Registration Date: 11/08/18 Care time: The patient presented to the Emergency Department on the above date and was hospitalized for further evaluation of their emergent condition. - New Patient This patient is new to me today: No - Critical Care Critical Care patient: No - Discharge Referral Referred to [facility] Med P.C.: No
[2018-11-09 14:50] LABS: RATIO URIN PROTEIN/URIN CREAT 0.25 MG/DL
[2018-11-09] MEDS: TAMSULOSIN HCL 0.4 MG CAP PO SCH (21:05)
[2018-11-09] MEDS: ATORVASTATIN CA 20 MG TABLET (FP) PO SCH (21:05)
[2018-11-10] MEDS ORDERED: INSULIN (NOVOLOG) ASPART 100 UNITS/ML 10ML VIAL ONE ×2 (07:03→21:11)
[2018-11-10] MEDS: INSULIN SLIDING SCALE (NOVOLOG) 1 VIAL SQ SCH ×4 (07:04→21:26)
[2018-11-10] MEDS ORDERED: PT OWN MED DRAWER 7, Y5N ONE (09:44)
[2018-11-10] MEDS ORDERED: DEXTROSE 5%-WATER - 50 ML IVPB ONE (09:44)
[2018-11-10] MEDS ORDERED: cefTRIAXone SODIUM 1 GM VIAL ONE (09:44)
[2018-11-10] MEDS: APIXABAN 2.5 MG TABLET PO SCH ×2 (09:47→21:21)
[2018-11-10] MEDS: MEMANTINE HCL 21 MG PO SCH (09:48)
[2018-11-10] MEDS: PATIENT'S OWN MEDICATION (NON-FORMULARY) (Mirabegron [Myrbetriq] 25 MG) PO SCH (09:49)
[2018-11-10] MEDS: LEVOTHYROXINE NA 25 MCG TABLET (FP) PO SCH (09:49)
[2018-11-10] MEDS: CEFTRIAXONE 1 GM in DEXTROSE 5%-WATER - 50 ML IVPB SCH (09:50)
[2018-11-10] MEDS: ATENOLOL 50 MG TABLET (FP) PO SCH (09:50)
[2018-11-10] MEDS: ESCITALOPRAM OXALATE 10 MG TABLET (FP) PO SCH (09:59)
[2018-11-10 12:21] LABS: BLOOD UREA NITROGEN 34.1 mg/dL (7-18); CALCIUM 8.6 mg/dL (8.5-10.1); CREATININE 2.1 mg/dL (0.55-1.3); POTASSIUM 3.6 mmol/L (3.5-5.1)
[2018-11-10] MEDS: SODIUM CHLORIDE 1,000 ML IV SCH (13:58)
--- NOTE | 2018-11-10 14:54 | PN ---
Progress Note (short form) - Note Progress Note: Renal follow up for NAWAF vs. CKD Pt seen and examined at the bedside awake and alert at the bedside offers no acute complaints denies any SOB, CP, Abd pain, fever, chills making urine on IVF Tolerating oral diet Vital Signs Temperature 98.2 F 11/10/18 14:00 Pulse Rate 83 11/10/18 14:00 Respiratory Rate 20 11/10/18 14:00 Blood Pressure 112/61 11/10/18 14:00 O2 Sat by Pulse Oximetry (%) 97 11/08/18 21:00 Intake & Output 11/07/18 11/08/18 11/09/18 11/10/18 23:59 23:59 23:59 23:59 Intake Total 1780 1025 1300 Output Total 300 Balance 1480 1025 1300 Weight 93.44 kg 13.154 kg 13.154 kg 98.911 kg NAD awake and alert RRR CTA soft Obese, NT/ND no LE edema CBC, BMP 11/09/18 06:30 11/10/18 10:02 Current Medications Acetaminophen (Tylenol -) 650 mg PO Q4H PRN PRN Reason: PAIN OR FEVER Apixaban (Eliquis -) 2.5 mg PO BID [facility] Last Admin: 11/10/18 09:47 Dose: 2.5 mg Atenolol (Tenormin -) 100 mg PO DAILY [facility] Last Admin: 11/10/18 09:50 Dose: 100 mg Atorvastatin Calcium (Lipitor -) 20 mg PO HS [facility] Last Admin: 11/09/18 21:05 Dose: 20 mg Escitalopram Oxalate (Lexapro -) 10 mg PO DAILY [facility] Last Admin: 11/10/18 09:59 Dose: 10 mg Sodium Chloride (Normal Saline -) 1,000 mls @ 75 mls/hr IV ASDIR DEANDRA Last Admin: 11/10/18 13:58 Dose: 75 mls/hr Ceftriaxone Sodium 1 gm/ (Dextrose) 50 mls @ 200 mls/hr IVPB DAILY [facility]; Protocol Last Admin: 11/10/18 09:50 Dose: 200 mls/hr Insulin Aspart (Novolog Vial Sliding Scale -) 1 vial SQ ACHS [facility]; Protocol Last Admin: 11/10/18 11:38 Dose: Not Given Levothyroxine Sodium (Synthroid -) 25 mcg PO DAILY [facility] Last Admin: 11/10/18 09:49 Dose: 25 mcg Non-Formulary Medication (Memantine Hcl [Memantine Hcl Er]) 21 mg PO DAILY [facility] [place] Last Admin: 11/10/18 09:48 Dose: 21 mg Non-Formulary Medication (Mirabegron [Myrbetriq]) 25 mg PO DAILY [facility] Last Admin: 11/10/18 09:49 Dose: 25 mg Tamsulosin HCl (Flomax -) 0.4 mg PO HS [facility] Last Admin: 11/09/18 21:05 Dose: 0.4 mg 77 y/o M with PMHx AFib (on Eliquis), HTN, BPH, DM, Gout, Alzheimer's dementia, Prostate Ca presents after mechanical fall and noted to have elevated BUN/Cr. #NAWAF vs. CKD #Mechanical fall #Afib on Coumadin #BPH #DM #Hyperlipidemia Renal function essentially stable UA showed bland sediment and UPCR was unremarkable pt did show possible UTI but urine culture wa w/o growth has been on IVF, now appears euvolemic, can d/c fluids would not restart thiazide type diuretic for now trend renal function and electrolytes off IVF no acute need for [employer] potassium and acid base balance are WNL. Babar Jang DO
--- NOTE | 2018-11-10 15:01 | PN ---
Teaching Attending Note Name of Resident: Deirdre Will ATTENDING PHYSICIAN STATEMENT I saw and evaluated the patient. I reviewed the resident's note and discussed the case with the resident. I agree with the resident's findings and plan as documented. SUBJECTIVE: Denies most complaints. Wants to go home. Unable to provide full history as oriented x 2. OBJECTIVE: Afebrile, Hemodynamically Stable. AAO x 2. Last Vital Signs Temp Pulse Resp BP Pulse Ox 98.2 F 83 20 112/61 97 11/10/18 14:00 11/10/18 14:00 11/10/18 14:00 11/10/18 14:00 11/08/18 21:00 Heart - S1, S2, RRR Lungs - clear to auscultation Abdomen - Soft, non-tender. Bowel Sounds normal. Extremities - some venous stasis skin changes. Neuro - AAO x 2. Tone/Power normal all 4 extremities. Laboratory Results - last 24 hr 11/09/18 11/09/18 11/09/18 13:30 17:07 20:49 Sodium Potassium Chloride Carbon Dioxide Anion Gap BUN Creatinine Est GFR (CKD-EPI)AfAm Est GFR (CKD-EPI)NonAf POC Glucometer 152 139 Random Glucose Calcium Protein/Creatinin Ratio 0.250 11/10/18 11/10/18 11/10/18 05:35 10:02 11:38 Sodium 143 Potassium 3.6 Chloride 105 Carbon Dioxide 26 Anion Gap 12 BUN 34.1 H Creatinine 2.1 H Est GFR (CKD-EPI)AfAm 33.45 Est GFR (CKD-EPI)NonAf 28.86 POC Glucometer 156 138 Random Glucose 145 H Calcium 8.6 Protein/Creatinin Ratio Current Medications Generic Name Dose Route Start Last Admin Trade Name Freq PRN Reason Stop Dose Admin Acetaminophen 650 mg 11/08/18 09:43 Tylenol - PO Q4H PRN PAIN OR FEVER Apixaban 2.5 mg 11/08/18 12:30 11/10/18 09:47 Eliquis - PO 2.5 mg BID DEANDRA Administration Atenolol 100 mg 11/09/18 10:00 11/10/18 09:50 Tenormin - PO 100 mg DAILY DEANDRA Administration Atorvastatin Calcium 20 mg 11/08/18 22:00 11/09/18 21:05 Lipitor - PO 20 mg HS DEANDRA Administration Escitalopram Oxalate 10 mg 11/08/18 12:30 11/10/18 09:59 Lexapro - PO 10 mg DAILY DEANDRA Administration Sodium Chloride 1,000 mls @ 75 mls/hr 11/08/18 20:00 11/10/18 13:58 Normal Saline - IV 75 mls/hr ASDIR DEANDRA Administration Ceftriaxone Sodium 1 gm/ 50 mls @ 200 mls/hr 11/08/18 20:30 11/10/18 09:50 Dextrose IVPB 200 mls/hr DAILY DEANDRA Administration Protocol Insulin Aspart 1 vial 11/08/18 11:00 11/10/18 11:38 Novolog Vial Sliding Scale - SQ Not Given ACHS DEANDRA Protocol Levothyroxine Sodium 25 mcg 11/09/18 10:00 11/10/18 09:49 Synthroid - PO 25 mcg DAILY DEANDRA Administration Non-Formulary Medication 21 mg 11/09/18 10:00 11/10/18 09:48 Memantine Hcl [Memantine Hcl Er] PO 21 mg DAILY DEANDRA Administration Non-Formulary Medication 25 mg 11/09/18 10:00 11/10/18 09:49 Mirabegron [Myrbetriq] PO 25 mg DAILY DEANDRA Administration Tamsulosin HCl 0.4 mg 11/08/18 22:00 11/09/18 21:05 Flomax - PO 0.4 mg HS DEANDRA Administration ASSESSMENT/PLAN: 77 year old male with history of Alzheimer's Dementia, Atrial Fibrillation (on Eliquis), HTN, BPH, DM 2, Gout, Prostate Ca brought to the ED after fall. Family reports frequent falls recently. 1. NAWAF ?sec to UTI + dehydration due to poor oral intake Foul smelling Urine - Urine Cx negative. Afebrile, Hemodynamically Stable. Renal/Bladder US - Bilateral renal lipomatosis, L Cyst 3.6cm Creat not significantly improved, down to 2.1 from 2.3. Will hold further IV hydration. Nephrology following. 2. Left Knee pain on ROM s/p fall Knee Xray - still pending PT eval. Needs SNF placement 3. Atrial Fibrillation - continue Atenolol and Eliquis. Given frequent falls, Cardio to re-evaluate safety of NOAC as out-patient. 4. DM 2 - Maintain on Insulin Sliding Scale. Oral anti-hyperglycemic meds held during in-patient stay. 5. HLD - Continue Lipitor 6. BPH, Prostate Ca, and Overactive Bladder - Continue Tamsulosin and Myrbetriq. 7. Hypothyroidism - Continue Levothyroxine. 8. Alzheimer's Dementia - Continue Memantine, Lexapro. Stable - Has not required any further doses of Haldol after the ED. 9. Gout - on Allopurinol. 10 Cerebrovascular Disease - Chronic R periventricular Chronic lacunar infarct on CT Head - on Eliquis and Lipitor. DVT Px - on Eliquis
--- NOTE | 2018-11-10 18:23 | PN ---
Physical Exam: SUBJECTIVE: Patient assessed at bedside today. Pt remains altered, had 2 episodes of voiding on floor today. OBJECTIVE: Vital Signs Period Temp Pulse Resp BP Sys/Dailey Pulse Ox Last 24 Hr 97.9 F-98.5 F 73-90 18-20 110-123/61-78 GENERAL: AOx2, not oriented to year. HEENT: NCAT LUNGS: CTABL. No wheezes/ rhonchi/ rales HEART: Regular rate and rhythm, S1, S2 without murmur, rub or gallop. ABDOMEN: Soft, nontender, nondistended, normoactive bowel sounds, no masses. EXTREMITIES: No edema noted. Laboratory Results - last 24 hr Laboratory Last Values WBC 8.5 K/mm3 (4.0-10.0) 11/09/18 06:30 RBC 3.51 M/mm3 (4.00-5.60) L 11/09/18 06:30 Hgb 11.1 GM/dL (11.7-16.9) L 11/09/18 06:30 Hct 33.6 % (35.4-49) L 11/09/18 06:30 MCV 95.7 fl (80-96) 11/09/18 06:30 MCH 31.5 pg (25.7-33.7) 11/09/18 06:30 MCHC 32.9 g/dl (32.0-35.9) 11/09/18 06:30 RDW 15.9 % (11.9-15.9) 11/09/18 06:30 Plt Count 173 K/MM3 (134-434) 11/09/18 06:30 MPV 9.2 fl (7.5-11.1) 11/09/18 06:30 Absolute Neuts (auto) 5.4 K/mm3 (1.5-8.0) 11/09/18 06:30 Neutrophils % 63.1 % (42.8-82.8) 11/09/18 06:30 Lymphocytes % 25.7 % (8-40) D 11/09/18 06:30 Monocytes % 8.6 % (3.8-10.2) 11/09/18 06:30 Eosinophils % 2.1 % (0-4.5) 11/09/18 06:30 Basophils % 0.5 % (0-2.0) 11/09/18 06:30 Nucleated RBC % 0 % (0-0) 11/09/18 06:30 PT with INR 15.80 SEC (9.7-13.0) H 11/08/18 00:49 INR 1.34 (0.83-1.09) H 11/08/18 00:49 PTT (Actin FS) 27.7 SECONDS (25.2-36.5) 11/08/18 00:49 Sodium 143 mmol/L (136-145) 11/10/18 10:02 Potassium 3.6 mmol/L (3.5-5.1) 11/10/18 10:02 Chloride 105 mmol/L (98-107) 11/10/18 10:02 Carbon Dioxide 26 mmol/L (21-32) 11/10/18 10:02 Anion Gap 12 MMOL/L (8-16) 11/10/18 10:02 BUN 34.1 mg/dL (7-18) H 11/10/18 10:02 Creatinine 2.1 mg/dL (0.55-1.3) H 11/10/18 10:02 Est GFR (CKD-EPI)AfAm 33.45 11/10/18 10:02 Est GFR (CKD-EPI)NonAf 28.86 11/10/18 10:02 POC Glucometer 135 UNITS (80-120) 11/10/18 16:54 Random Glucose 145 mg/dL (74-106) H 11/10/18 10:02 Calcium 8.6 mg/dL (8.5-10.1) 11/10/18 10:02 Phosphorus 4.2 mg/dL (2.5-4.9) 11/09/18 06:30 Magnesium 2.1 mg/dL (1.8-2.4) 11/09/18 06:30 Total Bilirubin 0.5 mg/dL (0.2-1) 11/09/18 06:30 AST 12 U/L (15-37) L 11/09/18 06:30 ALT 14 U/L (13-61) 11/09/18 06:30 Alkaline Phosphatase 32 U/L (45-117) L 11/09/18 06:30 Creatine Kinase 40 U/L (26-308) 11/08/18 00:49 Troponin I 0.02 ng/ml (0.00-0.05) 11/08/18 00:49 Total Protein 5.8 g/dl (6.4-8.2) L 11/09/18 06:30 Albumin 2.9 g/dl (3.4-5.0) L 11/09/18 06:30 Urine Color Yellow 11/08/18 19:00 Urine Appearance Cloudy 11/08/18 19:00 Urine pH 6.5 (5.0-8.0) 11/08/18 19:00 Ur Specific [place] 1.014 (1.010-1.035) 11/08/18 19:00 Urine Protein Negative (NEGATIVE) 11/08/18 19:00 Urine Glucose (UA) Negative (NEGATIVE) 11/08/18 19:00 Urine Ketones Negative (NEGATIVE) 11/08/18 19:00 Urine Blood Negative (NEGATIVE) 11/08/18 19:00 Urine Nitrite Negative (NEGATIVE) 11/08/18 19:00 Urine Bilirubin Negative (NEGATIVE) 11/08/18 19:00 Urine Urobilinogen 0.2 mg/dL (0.2-1.0) 11/08/18 19:00 Ur Leukocyte Esterase 3+ (NEGATIVE) H 11/08/18 19:00 Urine WBC (Auto) 169 /hpf (0-5) 11/08/18 19:00 Urine RBC (Auto) 3 /hpf (0-4) 11/08/18 19:00 Urine Casts (Auto) 3 /lpf (0-8) 11/08/18 19:00 U Epithel Cells (Auto) 0.2 /HPF (0-5/HPF) 11/08/18 19:00 Urine Bacteria (Auto) 36.1 /hpf (NEGATIVE) 11/08/18 19:00 Ur Random Creatinine 94.0 mg/dL (30-150) 11/08/18 20:26 U Random Total Protein 18.1 mg/dl (0-11.9) H 11/09/18 13:30 Ur Random Sodium 75 MMOL/L (40-220) 11/08/18 20:26 Urine Creatinine 72.0 mg/dL (20-320) 11/09/18 13:30 Protein/Creatinin Ratio 0.250 MG/DL 11/09/18 13:30 Active Medications Generic Name Dose Route Start Last Admin Trade Name Akil PRN Reason Stop Dose Admin Acetaminophen 650 mg 11/08/18 09:43 Tylenol - PO Q4H PRN PAIN OR FEVER Apixaban 2.5 mg 11/08/18 12:30 11/10/18 09:47 Eliquis - PO 2.5 mg BID DEANDRA Administration Atenolol 100 mg 11/09/18 10:00 11/10/18 09:50 Tenormin - PO 100 mg DAILY DEANDRA Administration Atorvastatin Calcium 20 mg 11/08/18 22:00 11/09/18 21:05 Lipitor - PO 20 mg HS DEANDRA Administration Escitalopram Oxalate 10 mg 11/08/18 12:30 11/10/18 09:59 Lexapro - PO 10 mg DAILY DEANDRA Administration Insulin Aspart 1 vial 11/08/18 11:00 11/10/18 16:55 Novolog Vial Sliding Scale - SQ Not Given ACHS [facility] Protocol Levothyroxine Sodium 25 mcg 11/09/18 10:00 11/10/18 09:49 Synthroid - PO 25 mcg DAILY DEANDRA Administration Non-Formulary Medication 21 mg 11/09/18 10:00 11/10/18 09:48 Memantine Hcl [Memantine Hcl Er] PO 21 mg DAILY DEANDRA Administration Non-Formulary Medication 25 mg 11/09/18 10:00 11/10/18 09:49 Mirabegron [Myrbetriq] PO 25 mg DAILY DEANDRA Administration Tamsulosin HCl 0.4 mg 11/08/18 22:00 11/09/18 21:05 Flomax - PO 0.4 mg HS DEANDRA Administration ASSESSMENT/PLAN: 77 y.o. M w/ PMH AFib (on Eliquis), HTN, BPH, DM, Gout, Alzhemiers dementia, hypothyroidism, Prostate CA presented to ED after mechanical fall w/o LOC. #NAWAF -2/2 UTI -Urine culture take 11/09/18 NGTD -U/S kidney/bladder: B/l renal lipomatosis, left sided simple cyst 3.6cm -Trending Cr; latest 2.1 (2.3 yest) -Nephro on board: has been on IVF, now appears euvolemic, can d/c fluids. would not restart thiazide type diuretic for now #Left knee pain -XR shows degenerative changes, medial posterior clips and vascular calcifications. An acute fracture or subluxation is not seen. -Pending PT #A-fib -Apixaban, Atenolol #HTN -C/w Atenolol DM -ISS #Alzheimers -C/w Escitalopram, memantine #BPH/ prostate CA -C/w tamsulosin, mirabegron # Hypothyroidism -Continue Levothyroxine. #Gout -C/w allopurinol #DVT Px -Apixaban 2.5mg PO BID Visit type - Emergency Visit Emergency Visit: No - New Patient This patient is new to me today: No - Critical Care Critical Care patient: No - Discharge Referral Referred to [facility] Med P.C[facility] No ATTENDING PHYSICIAN STATEMENT I saw and evaluated the patient. I reviewed the resident's note and discussed the case with the resident. I agree with the resident's findings and plan as documented. SUBJECTIVE: OBJECTIVE: ASSESSMENT AND PLAN:
[2018-11-10] MEDS: ATORVASTATIN CA 20 MG TABLET (FP) PO SCH (21:20)
[2018-11-10] MEDS: TAMSULOSIN HCL 0.4 MG CAP PO SCH (21:21)
[2018-11-11] MEDS: INSULIN SLIDING SCALE (NOVOLOG) 1 VIAL SQ SCH ×4 (06:05→23:03)
[2018-11-11 06:56] LABS: BILIRUBIN,TOTAL 0.8 mg/dL (0.2-1); BLOOD UREA NITROGEN 39.9 mg/dL (7-18); CALCIUM 8.5 mg/dL (8.5-10.1); CREATININE 2.3 mg/dL (0.55-1.3); POTASSIUM 3.5 mmol/L (3.5-5.1); TOT PROT 6.1 g/dl (6.4-8.2)
[2018-11-11] MEDS: ESCITALOPRAM OXALATE 10 MG TABLET (FP) PO SCH (09:08)
[2018-11-11] MEDS: PATIENT'S OWN MEDICATION (NON-FORMULARY) (Mirabegron [Myrbetriq] 25 MG) PO SCH (09:08)
[2018-11-11] MEDS: MEMANTINE HCL 21 MG PO SCH (09:08)
[2018-11-11] MEDS: APIXABAN 2.5 MG TABLET PO SCH ×2 (09:08→22:52)
[2018-11-11] MEDS: ATENOLOL 50 MG TABLET (FP) PO SCH (09:09)
[2018-11-11] MEDS: LEVOTHYROXINE NA 25 MCG TABLET (FP) PO SCH (09:09)
[2018-11-11] MEDS ORDERED: INSULIN (NOVOLOG) ASPART 100 UNITS/ML 10ML VIAL ONE ×2 (11:19→21:44)
--- NOTE | 2018-11-11 12:09 | PN ---
Teaching Attending Note Name of Resident: Deirdre Will ATTENDING PHYSICIAN STATEMENT I saw and evaluated the patient. I reviewed the resident's note and discussed the case with the resident. I agree with the resident's findings and plan as documented. SUBJECTIVE:asymptomatic. wants to leave. denies Cp, SOB, fever, chills, N/V/C/D or knee pain OBJECTIVE: Last Vital Signs Temp Pulse Resp BP Pulse Ox 98.3 F 75 20 125/81 97 11/11/18 08:10 11/11/18 08:10 11/11/18 08:10 11/11/18 08:10 11/08/18 21:00 General NAD CV S1 S2 RRR no murmur/rub/gallop lungs CTA B/L no wheezing/rales/rhonchi Extremities no pedal edema ASSESSMENT AND PLAN: 77 year old male with history of Alzheimer's Dementia, Atrial Fibrillation (on Eliquis), HTN, BPH, DM 2, Gout, Prostate Ca brought to the ED after fall. Family reports frequent falls recently. 1. NAWAF- possible due to poor oral intake and diuretics. was trending down and now back at 2.3. may be chronic component. did receive IVF which are now being held. does not show to be volume overloaded. would agree wiht holding diuretics on discharge. nephrology on board. UCx negative for infection and abx d/c 2. L knee pain- xray showing degenerative disease. does not have any pain at this time. PT and symptomatic treatment 3. Atrial Fibrillation on eliquis-cont rate control. can d/w cardio if should d/ c eliquis based on reports of frequent falls. no sings of bleeding. 4. DM 2 -A1c 8.2. re-start home meds on discharge. cont BGM and ISS 5. Dyslipidemia - Continue Lipitor 6. BPH, Prostate Ca, and Overactive Bladder - Continue Tamsulosin and Myrbetriq. 7. Hypothyroidism - Continue Levothyroxine. 8. Alzheimer's Dementia - Continue Memantine, Lexapro. Stable - Has not required any further doses of Haldol after the ED. 9. Gout - on Allopurinol. 10 Cerebrovascular Disease - Chronic R periventricular Chronic lacunar infarct on CT Head - on Eliquis and Lipitor. 11. DVT Px - on Eliquis 12. spoke with present at bedside. all questions answered. verbalized understanding. medically optimize for discharge. awaiting bed availability
--- NOTE | 2018-11-11 13:40 | PN ---
Physical Exam: SUBJECTIVE: Patient seen and examined at bedside. No acute events overnight. In no distress. Pending placement. OBJECTIVE: Vital Signs Period Temp Pulse Resp BP Sys/Dailey Pulse Ox Last 24 Hr 97.8 F-98.3 F 73-90 20-20 99-125/50-81 GENERAL: AOx2, not oriented to date HEENT: NCAT. LUNGS: CTABL. No wheezes/ rhonchi/ rales HEART: Regular rate and rhythm, S1, S2 without murmur, rub or gallop. ABDOMEN: Soft, nontender, nondistended, normoactive bowel sounds, no masses. EXTREMITIES: No edema noted. Laboratory Results - last 24 hr Laboratory Last Values WBC 8.5 K/mm3 (4.0-10.0) 11/09/18 06:30 RBC 3.51 M/mm3 (4.00-5.60) L 11/09/18 06:30 Hgb 11.1 GM/dL (11.7-16.9) L 11/09/18 06:30 Hct 33.6 % (35.4-49) L 11/09/18 06:30 MCV 95.7 fl (80-96) 11/09/18 06:30 MCH 31.5 pg (25.7-33.7) 11/09/18 06:30 MCHC 32.9 g/dl (32.0-35.9) 11/09/18 06:30 RDW 15.9 % (11.9-15.9) 11/09/18 06:30 Plt Count 173 K/MM3 (134-434) 11/09/18 06:30 MPV 9.2 fl (7.5-11.1) 11/09/18 06:30 Absolute Neuts (auto) 5.4 K/mm3 (1.5-8.0) 11/09/18 06:30 Neutrophils % 63.1 % (42.8-82.8) 11/09/18 06:30 Lymphocytes % 25.7 % (8-40) D 11/09/18 06:30 Monocytes % 8.6 % (3.8-10.2) 11/09/18 06:30 Eosinophils % 2.1 % (0-4.5) 11/09/18 06:30 Basophils % 0.5 % (0-2.0) 11/09/18 06:30 Nucleated RBC % 0 % (0-0) 11/09/18 06:30 PT with INR 15.80 SEC (9.7-13.0) H 11/08/18 00:49 INR 1.34 (0.83-1.09) H 11/08/18 00:49 PTT (Actin FS) 27.7 SECONDS (25.2-36.5) 11/08/18 00:49 Sodium 143 mmol/L (136-145) 11/11/18 05:20 Potassium 3.5 mmol/L (3.5-5.1) 11/11/18 05:20 Chloride 105 mmol/L (98-107) 11/11/18 05:20 Carbon Dioxide 29 mmol/L (21-32) 11/11/18 05:20 Anion Gap 8 MMOL/L (8-16) 11/11/18 05:20 BUN 39.9 mg/dL (7-18) H 11/11/18 05:20 Creatinine 2.3 mg/dL (0.55-1.3) H 11/11/18 05:20 Est GFR (CKD-EPI)AfAm 29.96 11/11/18 05:20 Est GFR (CKD-EPI)NonAf 25.85 11/11/18 05:20 POC Glucometer 135 UNITS (80-120) 11/11/18 11:31 Random Glucose 149 mg/dL (74-106) H 11/11/18 05:20 Calcium 8.5 mg/dL (8.5-10.1) 11/11/18 05:20 Phosphorus 4.2 mg/dL (2.5-4.9) 11/09/18 06:30 Magnesium 2.1 mg/dL (1.8-2.4) 11/09/18 06:30 Total Bilirubin 0.8 mg/dL (0.2-1) 11/11/18 05:20 AST 17 U/L (15-37) 11/11/18 05:20 ALT 18 U/L (13-61) 11/11/18 05:20 Alkaline Phosphatase 37 U/L (45-117) L 11/11/18 05:20 Creatine Kinase 40 U/L (26-308) 11/08/18 00:49 Troponin I 0.02 ng/ml (0.00-0.05) 11/08/18 00:49 Total Protein 6.1 g/dl (6.4-8.2) L 11/11/18 05:20 Albumin 3.0 g/dl (3.4-5.0) L 11/11/18 05:20 Urine Color Yellow 11/08/18 19:00 Urine Appearance Cloudy 11/08/18 19:00 Urine pH 6.5 (5.0-8.0) 11/08/18 19:00 Ur Specific [place] 1.014 (1.010-1.035) 11/08/18 19:00 Urine Protein Negative (NEGATIVE) 11/08/18 19:00 Urine Glucose (UA) Negative (NEGATIVE) 11/08/18 19:00 Urine Ketones Negative (NEGATIVE) 11/08/18 19:00 Urine Blood Negative (NEGATIVE) 11/08/18 19:00 Urine Nitrite Negative (NEGATIVE) 11/08/18 19:00 Urine Bilirubin Negative (NEGATIVE) 11/08/18 19:00 Urine Urobilinogen 0.2 mg/dL (0.2-1.0) 11/08/18 19:00 Ur Leukocyte Esterase 3+ (NEGATIVE) H 11/08/18 19:00 Urine WBC (Auto) 169 /hpf (0-5) 11/08/18 19:00 Urine RBC (Auto) 3 /hpf (0-4) 11/08/18 19:00 Urine Casts (Auto) 3 /lpf (0-8) 11/08/18 19:00 U Epithel Cells (Auto) 0.2 /HPF (0-5/HPF) 11/08/18 19:00 Urine Bacteria (Auto) 36.1 /hpf (NEGATIVE) 11/08/18 19:00 Ur Random Creatinine 94.0 mg/dL (30-150) 11/08/18 20:26 U Random Total Protein 18.1 mg/dl (0-11.9) H 11/09/18 13:30 Ur Random Sodium 75 MMOL/L (40-220) 11/08/18 20:26 Urine Creatinine 72.0 mg/dL (20-320) 11/09/18 13:30 Protein/Creatinin Ratio 0.250 MG/DL 11/09/18 13:30 Active Medications Generic Name Dose Route Start Last Admin Trade Name Akil PRN Reason Stop Dose Admin Acetaminophen 650 mg 11/08/18 09:43 Tylenol - PO Q4H PRN PAIN OR FEVER Apixaban 2.5 mg 11/08/18 12:30 11/11/18 09:08 Eliquis - PO 2.5 mg BID DEANDRA Administration Atenolol 100 mg 11/09/18 10:00 11/11/18 09:09 Tenormin - PO 100 mg DAILY DEANDRA Administration Atorvastatin Calcium 20 mg 11/08/18 22:00 11/10/18 21:20 Lipitor - PO 20 mg HS DEANDRA Administration Escitalopram Oxalate 10 mg 11/08/18 12:30 11/11/18 09:08 Lexapro - PO 10 mg DAILY DEANDRA Administration Insulin Aspart 1 vial 11/08/18 11:00 11/11/18 11:33 Novolog Vial Sliding Scale - SQ Not Given ACHS [facility] Protocol Levothyroxine Sodium 25 mcg 11/09/18 10:00 11/11/18 09:09 Synthroid - PO 25 mcg DAILY DEANDRA Administration Non-Formulary Medication 21 mg 11/09/18 10:00 11/11/18 09:08 Memantine Hcl [Memantine Hcl Er] PO 21 mg DAILY DEANDRA Administration Non-Formulary Medication 25 mg 11/09/18 10:00 11/11/18 09:08 Mirabegron [Myrbetriq] PO 25 mg DAILY DEANDRA Administration Tamsulosin HCl 0.4 mg 11/08/18 22:00 11/10/18 21:21 Flomax - PO 0.4 mg HS DEANDRA Administration ASSESSMENT/PLAN: 77 y.o. M w/ PMH AFib (on Eliquis), HTN, BPH, DM, Gout, Alzhemiers dementia, hypothyroidism, Prostate CA presented to ED after mechanical fall w/o LOC. #NAWAF -2/2 UTI -Urine culture take 11/09/18 negative -U/S kidney/bladder: B/l renal lipomatosis, left sided simple cyst 3.6cm -Trending Cr; latest 2.3 -Nephro on board #Left knee pain -XR shows degenerative changes, medial posterior clips and vascular calcifications. An acute fracture or subluxation is not seen. -Requires outpatient PT #A-fib -Apixaban, Atenolol #HTN -C/w Atenolol DM -ISS; 2 units Novolog today #Alzheimers -C/w Escitalopram, memantine #BPH/ prostate CA -C/w tamsulosin, mirabegron # Hypothyroidism -Continue Levothyroxine. #Gout -C/w allopurinol #FEN -fluids d/c'ed -Monitor lytes -Diabetic diet #DVT PPX -Apixaban 2.5mg PO BID Visit type - Emergency Visit Emergency Visit: No - New Patient This patient is new to me today: No - Critical Care Critical Care patient: No ATTENDING PHYSICIAN STATEMENT I saw and evaluated the patient. I reviewed the resident's note and discussed the case with the resident. I agree with the resident's findings and plan as documented. SUBJECTIVE: OBJECTIVE: ASSESSMENT AND PLAN:
--- NOTE | 2018-11-11 16:07 | PN ---
Progress Note (short form) - Note Progress Note: Renal follow up for NAWAF vs. CKD Pt seen and examined at the bedside awake and alert at the bedside no complaints denies any sob, cp, abd pain, fever, chills making urine tolerating diet Vital Signs Temperature 99.7 F H 11/11/18 14:00 Pulse Rate 99 H 11/11/18 14:00 Respiratory Rate 20 11/11/18 14:00 Blood Pressure 109/72 11/11/18 14:00 O2 Sat by Pulse Oximetry (%) 97 11/08/18 21:00 Intake & Output 11/08/18 11/09/18 11/10/18 11/11/18 23:59 23:59 23:59 23:59 Intake Total 1780 1025 2007 200 Output Total 300 Balance 1480 1025 2007 200 Weight 13.154 kg 13.154 kg 98.911 kg 98.43 kg NAD awake and alert RRR CTA soft Obese, NT/ND no LE edema CBC, BMP 11/09/18 06:30 11/11/18 05:20 Current Medications Acetaminophen (Tylenol -) 650 mg PO Q4H PRN PRN Reason: PAIN OR FEVER Apixaban (Eliquis -) 2.5 mg PO BID [facility] Last Admin: 11/11/18 09:08 Dose: 2.5 mg Atenolol (Tenormin -) 100 mg PO DAILY [facility] Last Admin: 11/11/18 09:09 Dose: 100 mg Atorvastatin Calcium (Lipitor -) 20 mg PO HS [facility] Last Admin: 11/10/18 21:20 Dose: 20 mg Escitalopram Oxalate (Lexapro -) 10 mg PO DAILY [facility] Last Admin: 11/11/18 09:08 Dose: 10 mg Insulin Aspart (Novolog Vial Sliding Scale -) 1 vial SQ ACHS [facility]; Protocol Last Admin: 11/11/18 11:33 Dose: Not Given Levothyroxine Sodium (Synthroid -) 25 mcg PO DAILY [facility] Last Admin: 11/11/18 09:09 Dose: 25 mcg Non-Formulary Medication (Memantine Hcl [Memantine Hcl Er]) 21 mg PO DAILY [facility] Last Admin: 11/11/18 09:08 Dose: 21 mg Non-Formulary Medication (Mirabegron [Myrbetriq]) 25 mg PO DAILY [facility] Last Admin: 11/11/18 09:08 Dose: 25 mg Tamsulosin HCl (Flomax -) 0.4 mg PO HS DEANDRA Last Admin: 11/10/18 21:21 Dose: 0.4 mg 77 y/o M with PMHx AFib (on Eliquis), HTN, BPH, DM, Gout, Alzheimer's dementia, Prostate Ca presents after mechanical fall and noted to have elevated BUN/Cr. #NAWAF vs. CKD #Mechanical fall #Afib on Coumadin #BPH #DM #Hyperlipidemia Renal function essentially stable and pt appears euvolemic UA showed bland sediment and UPCR was unremarkable would not restart thiazide type diuretic on discharge trend renal function and electrolytes off IVF continue to trend renal function and elecroltyes will need continued outpatient monitoring of renal function Babar Jang DO
[2018-11-11] MEDS: ATORVASTATIN CA 20 MG TABLET (FP) PO SCH (22:52)
[2018-11-11] MEDS: TAMSULOSIN HCL 0.4 MG CAP PO SCH (22:52)
[2018-11-12 06:20] LABS: BASO % 0.6 % (0-2.0); EOS % 2.1 % (0-4.5); HEMATOCRIT 32.6 % (35.4-49); LYMPH % 25.7 % (8-40); MCH 31.8 pg (25.7-33.7); MCHC 33.6 g/dl (32.0-35.9); MEAN CELL VOLUME 94.5 fl (80-96); MEAN PLT VOLUME 8.5 fl (7.5-11.1); MONO % 8.1 % (3.8-10.2); NEUT % 63.5 % (42.8-82.8); PLATELET COUNT 213 K/MM3 (134-434); RBC 3.45 M/mm3 (4.00-5.60); RDW 15.5 % (11.9-15.9)
[2018-11-12] MEDS: INSULIN SLIDING SCALE (NOVOLOG) 1 VIAL SQ SCH ×3 (06:39→18:47)
[2018-11-12 06:43] LABS: BLOOD UREA NITROGEN 42.4 mg/dL (7-18); CALCIUM 8.2 mg/dL (8.5-10.1); CREATININE 2.1 mg/dL (0.55-1.3); MAGNESIUM 2.2 mg/dL (1.8-2.4); PHOSPHOROUS 4.4 mg/dL (2.5-4.9); POTASSIUM 3.5 mmol/L (3.5-5.1)
[2018-11-12] MEDS: APIXABAN 2.5 MG TABLET PO SCH (10:48)
[2018-11-12] MEDS: ATENOLOL 50 MG TABLET (FP) PO SCH (10:49)
[2018-11-12] MEDS: LEVOTHYROXINE NA 25 MCG TABLET (FP) PO SCH (10:52)
[2018-11-12] MEDS: PATIENT'S OWN MEDICATION (NON-FORMULARY) (Mirabegron [Myrbetriq] 25 MG) PO SCH (10:52)
[2018-11-12] MEDS: MEMANTINE HCL 21 MG PO SCH (10:53)
[2018-11-12] MEDS: ESCITALOPRAM OXALATE 10 MG TABLET (FP) PO SCH (10:54)
--- NOTE | 2018-11-12 12:41 | PN ---
Teaching Attending Note Name of Resident: Deirdre Will ATTENDING PHYSICIAN STATEMENT I saw and evaluated the patient. I reviewed the resident's note and discussed the case with the resident. I agree with the resident's findings and plan as documented. SUBJECTIVE:asymptomatic. denies Cp, SOB< fever, chills, N/V/C/D OBJECTIVE: Last Vital Signs Temp Pulse Resp BP Pulse Ox 98.2 F 78 20 137/75 97 11/12/18 06:00 11/12/18 06:00 11/12/18 06:00 11/12/18 06:00 11/08/18 21:00 General NAD CV S1 S2 RRR no murmur/rub/gallop lungs CTA B/L no wheezing/rales/rhonchi Extremities no pedal edema ASSESSMENT AND PLAN: 77 year old male with history of Alzheimer's Dementia, Atrial Fibrillation (on Eliquis), HTN, BPH, DM 2, Gout, Prostate Ca brought to the ED after fall. Family reports frequent falls recently. 1. NAWAF- possible due to poor oral intake and diuretics. was trending down and now back at 2.3. may be chronic component. did receive IVF which are now being held. does not show to be volume overloaded. would agree wiht holding diuretics on discharge. nephrology on board. UCx negative for infection and abx d/c 2. L knee pain- xray showing degenerative disease. does not have any pain at this time. PT and symptomatic treatment 3. Atrial Fibrillation on eliquis-cont rate control. can d/w cardio if should d/ c eliquis based on reports of frequent falls. no signs of bleeding. 4. DM 2 -A1c 8.2. re-start home meds on discharge. cont BGM and ISS 5. Dyslipidemia - Continue Lipitor 6. BPH, Prostate Ca, and Overactive Bladder - Continue Tamsulosin and Myrbetriq. 7. Hypothyroidism - Continue Levothyroxine. 8. Alzheimer's Dementia - Continue Memantine, Lexapro. Stable - Has not required any further doses of Haldol after the ED. 9. Gout - on Allopurinol. 10 Cerebrovascular Disease - Chronic R periventricular Chronic lacunar infarct on CT Head - on Eliquis and Lipitor. 11. DVT Px - on Eliquis 12. awaiting [facility] bed. medically optimize for discharge. awaiting bed availability
--- NOTE | 2018-11-12 13:41 | PN ---
Progress Note (short form) - Note Progress Note: Renal follow up for NAWAF vs. CKD Pt seen and examined at the bedside awake and alert at the bedside no complaints denies any sob, cp, abd pain, fever, chills making urine tolerating diet Vital Signs Temperature 98.2 F 11/12/18 06:00 Pulse Rate 78 11/12/18 06:00 Respiratory Rate 20 11/12/18 06:00 Blood Pressure 137/75 11/12/18 06:00 O2 Sat by Pulse Oximetry (%) 97 11/08/18 21:00 Intake & Output 11/09/18 11/10/18 11/11/18 11/12/18 23:59 23:59 23:59 23:59 Intake Total 1025 2007 400 120 Output Total 200 Balance 1025 2007 400 -80 Weight 13.154 kg 98.911 kg 98.43 kg 99.473 kg NAD awake and alert RRR CTA soft Obese, NT/ND no LE edema CBC, BMP 11/12/18 05:41 11/12/18 06:00 Current Medications Acetaminophen (Tylenol -) 650 mg PO Q4H PRN PRN Reason: PAIN OR FEVER Last Admin: 11/12/18 11:02 Dose: 650 mg Apixaban (Eliquis -) 2.5 mg PO BID [facility] Last Admin: 11/12/18 10:48 Dose: 2.5 mg Atenolol (Tenormin -) 100 mg PO DAILY [facility] Last Admin: 11/12/18 10:49 Dose: 100 mg Atorvastatin Calcium (Lipitor -) 20 mg PO HS [facility] Last Admin: 11/11/18 22:52 Dose: 20 mg Escitalopram Oxalate (Lexapro -) 10 mg PO DAILY [facility] Last Admin: 11/12/18 10:54 Dose: 10 mg Insulin Aspart (Novolog Vial Sliding Scale -) 1 vial SQ [facility]; Protocol Last Admin: 11/12/18 11:45 Dose: Not Given Levothyroxine Sodium (Synthroid -) 25 mcg PO DAILY [facility] Last Admin: 11/12/18 10:52 Dose: 25 mcg Non-Formulary Medication (Memantine Hcl [Memantine Hcl Er]) 21 mg PO DAILY [facility] Last Admin: 11/12/18 10:53 Dose: 21 mg Non-Formulary Medication (Mirabegron [Myrbetriq]) 25 mg PO DAILY [facility] Last Admin: 11/12/18 10:52 Dose: 25 mg Tamsulosin HCl (Flomax -) 0.4 mg PO HS [facility] Last Admin: 11/11/18 22:52 Dose: 0.4 mg 77 y/o M with PMHx AFib (on Eliquis), HTN, BPH, DM, Gout, Alzheimer's dementia, Prostate Ca presents after mechanical fall and noted to have elevated BUN/Cr. #NAWAF vs. CKD #Mechanical fall #Afib on Coumadin #BPH #DM #Hyperlipidemia Renal function essentially stable and pt appears euvolemic UA showed bland sediment and UPCR was unremarkable would not restart thiazide type diuretic on discharge awaiting placement in rehab for discharge will need outpatient renal follow up continue flomax Babar Jang DO
[2018-11-12 14:02] VITALS: BP 100/60; PULSE 79; TEMP 98
--- NOTE | 2018-11-12 14:48 | DS ---
Physical Exam: SUBJECTIVE: Patient seen and examined at bedside. No complaints at this time. OBJECTIVE: Vital Signs Period Temp Pulse Resp BP Sys/Dailey Pulse Ox Last 24 Hr 98.0 F-99.1 F 78-84 18-20 100-137/60-75 PHYSICAL EXAM GENERAL: AOx2, not oriented to date HEENT: No lymphadenopathy LUNGS: Breath sounds equal, clear to auscultation bilaterally,, no accessory muscle use. HEART: Regular rate and rhythm, S1, S2 without murmurs ABDOMEN: Soft, nontender, nondistended, normoactive bowel sounds. EXTREMITIES: 2+ pulses, well-perfused, no edema. Neuro: Unsteady gait SKIN: No rashes or lesions noted. LABS Laboratory Results - last 24 hr Laboratory Last Values WBC 9.0 K/mm3 (4.0-10.0) 11/12/18 05:41 RBC 3.45 M/mm3 (4.00-5.60) L 11/12/18 05:41 Hgb 11.0 GM/dL (11.7-16.9) L 11/12/18 05:41 Hct 32.6 % (35.4-49) L 11/12/18 05:41 MCV 94.5 fl (80-96) 11/12/18 05:41 MCH 31.8 pg (25.7-33.7) 11/12/18 05:41 MCHC 33.6 g/dl (32.0-35.9) 11/12/18 05:41 RDW 15.5 % (11.9-15.9) 11/12/18 05:41 Plt Count 213 K/MM3 (134-434) D 11/12/18 05:41 MPV 8.5 fl (7.5-11.1) 11/12/18 05:41 Absolute Neuts (auto) 5.7 K/mm3 (1.5-8.0) 11/12/18 05:41 Neutrophils % 63.5 % (42.8-82.8) 11/12/18 05:41 Lymphocytes % 25.7 % (8-40) 11/12/18 05:41 Monocytes % 8.1 % (3.8-10.2) 11/12/18 05:41 Eosinophils % 2.1 % (0-4.5) 11/12/18 05:41 Basophils % 0.6 % (0-2.0) 11/12/18 05:41 Nucleated RBC % 0 % (0-0) 11/12/18 05:41 PT with INR 15.80 SEC (9.7-13.0) H 11/08/18 00:49 INR 1.34 (0.83-1.09) H 11/08/18 00:49 PTT (Actin FS) 27.7 SECONDS (25.2-36.5) 11/08/18 00:49 Sodium 141 mmol/L (136-145) 11/12/18 06:00 Potassium 3.5 mmol/L (3.5-5.1) 11/12/18 06:00 Chloride 106 mmol/L (98-107) 11/12/18 06:00 Carbon Dioxide 28 mmol/L (21-32) 11/12/18 06:00 Anion Gap 8 MMOL/L (8-16) 11/12/18 06:00 BUN 42.4 mg/dL (7-18) H 11/12/18 06:00 Creatinine 2.1 mg/dL (0.55-1.3) H 11/12/18 06:00 Est GFR (CKD-EPI)AfAm 33.45 11/12/18 06:00 Est GFR (CKD-EPI)NonAf 28.86 11/12/18 06:00 POC Glucometer 149 UNITS (80-120) 11/12/18 11:43 Random Glucose 157 mg/dL (74-106) H 11/12/18 06:00 Calcium 8.2 mg/dL (8.5-10.1) L 11/12/18 06:00 Phosphorus 4.4 mg/dL (2.5-4.9) 11/12/18 06:00 Magnesium 2.2 mg/dL (1.8-2.4) 11/12/18 06:00 Total Bilirubin 0.8 mg/dL (0.2-1) 11/11/18 05:20 AST 17 U/L (15-37) 11/11/18 05:20 ALT 18 U/L (13-61) 11/11/18 05:20 Alkaline Phosphatase 37 U/L (45-117) L 11/11/18 05:20 Creatine Kinase 40 U/L (26-308) 11/08/18 00:49 Troponin I 0.02 ng/ml (0.00-0.05) 11/08/18 00:49 Total Protein 6.1 g/dl (6.4-8.2) L 11/11/18 05:20 Albumin 3.0 g/dl (3.4-5.0) L 11/11/18 05:20 Urine Color Yellow 11/08/18 19:00 Urine Appearance Cloudy 11/08/18 19:00 Urine pH 6.5 (5.0-8.0) 11/08/18 19:00 Ur Specific Comfort 1.014 (1.010-1.035) 11/08/18 19:00 Urine Protein Negative (NEGATIVE) 11/08/18 19:00 Urine Glucose (UA) Negative (NEGATIVE) 11/08/18 19:00 Urine Ketones Negative (NEGATIVE) 11/08/18 19:00 Urine Blood Negative (NEGATIVE) 11/08/18 19:00 Urine Nitrite Negative (NEGATIVE) 11/08/18 19:00 Urine Bilirubin Negative (NEGATIVE) 11/08/18 19:00 Urine Urobilinogen 0.2 mg/dL (0.2-1.0) 11/08/18 19:00 Ur Leukocyte Esterase 3+ (NEGATIVE) H 11/08/18 19:00 Urine WBC (Auto) 169 /hpf (0-5) 11/08/18 19:00 Urine RBC (Auto) 3 /hpf (0-4) 11/08/18 19:00 Urine Casts (Auto) 3 /lpf (0-8) 11/08/18 19:00 U Epithel Cells (Auto) 0.2 /HPF (0-5/HPF) 11/08/18 19:00 Urine Bacteria (Auto) 36.1 /hpf (NEGATIVE) 11/08/18 19:00 Ur Random Creatinine 94.0 mg/dL (30-150) 11/08/18 20:26 U Random Total Protein 18.1 mg/dl (0-11.9) H 11/09/18 13:30 Ur Random Sodium 75 MMOL/L (40-220) 11/08/18 20:26 Urine Creatinine 72.0 mg/dL (20-320) 11/09/18 13:30 Protein/Creatinin Ratio 0.250 MG/DL 11/09/18 13:30 HOSPITAL COURSE: 77 y.o. M w/ PMH A-fib (On eloquis), HTN, BPH, DM, gour, Alzheimers dementia, hypothyroidism, prostate CA presented to ED s/p mechanical fall without loss of consciousness. Head CT r/o acute bleeding, CT C-spine and Left knee XR r/o acute fracture. Per PT eval patient has narrow-based unsteady gait. UA revealed 3+ LE; patient completed 2 days ceftriaxone abx which were d/c'ed after neg urine culture, and pt remained asymptomatic. U/S Kidney bladder revealed b/l renal lipomatosis & left sided simple cyst for which pt will f/u outpatient nephro. He is clinically stable. Thiazide d/c'ed on discharge. He will be d/c' ed to SNF where he will be able to rebuild strength. Date of Admission:11/08/18 CT C-spine w/o con 11/08/18: The alignment is satisfactory. No gross fracture or subluxation is seen. 2 level degenerative disc disease, as described above. CT Head w/o con 11/08/18: The alignment is satisfactory. No gross fracture or subluxation is seen. 2 level degenerative disc disease, as described above. Renal/ Bladder US 11/08/18: Bilateral renal sinus lipomatosis. Left renal simple cyst measuring 3.6 cm. Both kidneys appear otherwise unremarkable. Moderately distended urinary bladder without wall thickening. Bilateral ureteral jets were identified. Minimal postvoid urine residue of HCC. Prostate gland was not visualized Left knee XR 11/10/18: 3 views of the left knee reveal degenerative changes, medial posterior clips and vascular calcifications. An acute fracture or subluxation is not seen. If symptoms persist, further imaging may be of help. Date of Discharge: 11/12/18 Minutes to complete discharge: 36 Discharge Summary Reason For Visit: ACUTE KIDNEY INJURY Current Active Problems Acute kidney injury (Acute) Condition: Stable - Instructions Diet, Activity, Other Instructions: You presented to the hospital after falling down. Knee XRay did not reveal a fracture. Medication Changes: 1. Please DO NOT continue taking your atenolol-chlorthalidone pills. 2. Please start taking Atenolol, 2 x 50mg tablets, twice per day Follow up with the following physicians: 1. Primary care provider in 1 week 2. Nephrology (Dr. Jang) in 1 week. You are being discharged to your nursing facility. You will need to have physical therapy to increase your strength. Please continue taking all other medications as prescribed. Please return to the ER if you have any signs or symptoms of confusion, chest pain, shortness of breath, confusion, dizziness, fatigue, fevers, vomiting, muscle pains or weakness. Please return to the ER if symptoms persist, worsen, or new symptoms arise. Referrals: Pj Valdez MD [Primary Care Provider] - Babar Jang MD [Staff Physician] - Disposition: [facility] - Home Medications Comprehensive Discharge Medication List: Ambulatory Orders Allopurinol [Zyloprim -] 300 mg PO DAILY 11/08/18 Apixaban [Eliquis] 2.5 mg PO BID 11/08/18 Escitalopram Oxalate [Lexapro -] 10 mg PO DAILY 11/08/18 Levothyroxine [Synthroid -] 25 mcg PO DAILY 11/08/18 Memantine HCl [Memantine HCl ER] 21 mg PO DAILY 11/08/18 Metformin HCl [Glucophage] 1,000 mg PO BID 11/08/18 Mirabegron [Myrbetriq] 25 mg PO DAILY 11/08/18 Simvastatin [Zocor -] 40 mg PO HS 11/08/18 Sitagliptin Phosphate [Januvia] 50 mg PO DAILY 11/08/18 Tamsulosin HCl 0.4 mg PO HS 11/08/18 Atenolol [Tenormin -] 100 mg PO DAILY #60 tablet 11/12/18 This patient is new to me today: No Emergency Visit: No Critical Care patient: No - Discharge Referral Referred to [facility] No ATTENDING PHYSICIAN STATEMENT I saw and evaluated the patient. I reviewed the resident's note and discussed the case with the resident. I agree with the resident's findings and plan as documented. SUBJECTIVE: OBJECTIVE: ASSESSMENT AND PLAN:
== END 2018-11-12 18:25 | DRG 682 ==
LOC: JER 22:42 → JERBED 11-08 04:31 → J8W 11-08 10:20
PROVIDERS: ADMIT Internal Medicine; ATTEND Internal Medicine
DX: N17.9 Acute kidney failure, unspecified (principal); I63.81 Other cerebral infarction due to occlusion or stenosis of small artery; N39.0 Urinary tract infection, site not specified; M10.9 Gout, unspecified; I48.91 Unspecified atrial fibrillation; I12.9 Hypertensive chronic kidney disease with stage 1 through stage 4 chronic kidney disease, or unspecified chronic kidney disease; E11.22 Type 2 diabetes mellitus with diabetic chronic kidney disease; N18.9 Chronic kidney disease, unspecified; G30.9 Alzheimer's disease, unspecified; F02.80 Dementia in other diseases classified elsewhere, unspecified severity, without behavioral disturbance, psychotic disturbance, mood disturbance, and anxiety; E78.00 Pure hypercholesterolemia, unspecified; M25.569 Pain in unspecified knee; N40.0 Benign prostatic hyperplasia without lower urinary tract symptoms; E86.0 Dehydration; E03.9 Hypothyroidism, unspecified; D64.9 Anemia, unspecified; Z85.46 Personal history of malignant neoplasm of prostate; W18.39XA Other fall on same level, initial encounter; Y92.098 Other place in other non-institutional residence as the place of occurrence of the external cause; G46.7 Other lacunar syndromes; N28.1 Cyst of kidney, acquired
CPT/HCPCS: 36415; 70450-TC; 72125-TC; 73562-TC-LT-FY; 76775-TC; 76856-TC; 80048; 80053; 81003; 82550; 82565; 82570; 82962; 83735; 84100; 84156; 84300; 84484; 85025; 85610; 85730; 87086; 93005; 93010; 97116-GP; 97162-GP; 99283-25; J7030